=== PATIENT | male | born 1940 | race Caucasian/White ===

== ENCOUNTER 2023-01-11 20:00 | Inpatient (IN) ==
[~2023-01-11 20:00] MED LIST: ETOMIDATE 2 MG/ML 20 ML VIAL IV ONE; MIDAZOLAM HCL 5 MG/ML 2ML VIAL IV ONE; SUCCINYLCHOLINE CHLORIDE 20 MG/ML 10 ML VIAL IV ONE
[2023-01-11] MEDS ORDERED: RAPID SEQUENCE INDUCTION BAG ONE ×2 (20:05)
[2023-01-11] MEDS ORDERED: ALBUT/IPRATROP 3MG/0.5MG NEB 3 ML VIAL NEB ONE (20:09)
[2023-01-11] MEDS ORDERED: PROPOFOL IV EMULSION 10 MG/ML 100 ML VIAL IV ONE (20:22)
[2023-01-11] MEDS ORDERED: MIDAZOLAM HCL 5 MG/ML 2ML VIAL IV STA (21:12)
[2023-01-11] MEDS ORDERED: CEFEPIME 2,000 MG/20 ML VIAL IV STA (21:24)
[2023-01-11] MEDS ORDERED: SODIUM CHLORIDE 0.9% 1000ML 2,000 ML IV ONE (21:27)
[2023-01-11 21:40] LABS: iSTAT Hemoglobin 10.5 g/dl (14.0-18.0); iSTAT Ionized Calcium 1.08 mmol/l (1.12-1.32); iSTAT Potassium 4.9 mmol/L (3.3-5.0)
[2023-01-11] MEDS ORDERED: STAT IV Infusion **Titration per Protocol STA (21:47)
[2023-01-11] MEDS ORDERED: MIDAZOLAM HCL 1 MG/ML 2ML VIAL IV PRN (21:47)
[2023-01-11] MEDS ORDERED: fentaNYL BOLUS from BAG IV PRN (21:47)
[2023-01-11] MEDS ORDERED: fentaNYL citrate 2,500 MCG/250 ML BAG IV ONE (21:48)
[2023-01-11] MEDS ORDERED: NOREPINEPHRINE/D5W 4 MG/250 ML IV ONE (21:49)
[2023-01-11 21:52] LABS: iSTAT Arterial Blood Gas HCO3 24 meg/L (19-24); iSTAT Arterial Blood Gas pCO2 82 mmHg (35-46); iSTAT Arterial Blood Gas pH 7.08 (7.35-7.45); iSTAT Arterial Blood Gas pO2 90 mmHg (80-95); iSTAT Carbon Dioxide 27 mmol/L (24-31); iSTAT Hematocrit 23 % (42-52); iSTAT Hemoglobin 7.8 g/dl (14.0-18.0); iSTAT Potassium 3.7 mmol/L (3.3-5.0); iSTAT Sodium 144 mmol/L (135-144)
[2023-01-11 21:52] LABS: iSTAT Arterial Blood Gas HCO3 32 meg/L (19-24); iSTAT Arterial Blood Gas pCO2 91 mmHg (35-46); iSTAT Arterial Blood Gas pH 7.16 (7.35-7.45); iSTAT Arterial Blood Gas pO2 66 mmHg (80-95); iSTAT Carbon Dioxide 35 mmol/L (24-31); iSTAT Hematocrit 35 % (42-52); iSTAT Hemoglobin 11.9 g/dl (14.0-18.0); iSTAT Potassium 4.7 mmol/L (3.3-5.0); iSTAT Sodium 138 mmol/L (135-144)
[2023-01-11] MEDS: fentaNYL citrate 2,500 MCG/250 ML BAG IV SCH (21:55)
--- NOTE | 2023-01-11 21:57 | Procedure Note ---
Procedure Note Date of Service January 11, 2023 Note INTERNAL JUGULAR CENTRAL LINE PROCEDURE NOTE: Procedure: Internal Jugular Central Line Placement Attending: Dr. Brandon Light Provider: GEENA De La Rosa Indication: Central Drug Administration, Poor Venous Access, Multiple Lab Draws Necessary, etc. Anesthesia: None Consent was signed and placed on the chart prior to procedure. Indication, risks, and benefits were explained at length. A time-out was completed verifying correct patient, procedure, site, positioning, and implants(s) or special equipment if applicable. Patients right neck was cleansed and draped in the typical sterile fashion using Chloraprep. The Internal Jugular Vein and Carotid Artery were identified using ultrasound. The superficial tissue was anesthetized using 3 mL of 1% lidocaine without epinephrine under direct visualization with the ultrasound. After adequate anesthetization was achieved, the Internal Jugular vein was cannulated under direct ultrasound guidance using an introducer needle on a syringe. Good venous blood return was maintained prior to removal of syringe from introducer needle. Using Seldinger Technique, a guide wire was advanced through the introducer needle without resistance. The introducer needle was removed and ultrasound images were obtained of the guide wire within the Internal Jugular Vein and saved to the patients medical record. A small incision was made in penetrating fashion at the guide wire insertion site utilizing an 11 blade scalpel. The dilator was advanced to the vessel without resistance. The dilator was exchanged for the triple lumen catheter which was advanced into the vessel without resistance. The guide wire was removed intact from the catheter without issue. Claves were placed on each catheter tip with confirmation of good blood flow from each lumen. Each port was easily flushed with sterile saline. The catheter was placed at 16 cm and sutured in place. BioPatch was applied to the catheter and a sterile Tegaderm dressing was applied over the catheter with careful attention to sterility. Patient tolerated procedure well. No immediate complications were met. Post procedure x-ray was completed, placement was appropriate and no pneumothorax was noted. Procedural Ultrasound Guidance: Procedure Date: 01/11/2023 Indication: Central venous catheter insertion Attending: Dr. Brandon Light Provider: GEENA De La Rosa Artery AND Vein visualized: Yes Compressible Vein: Yes Guidewire or Short Catheter seen in vein prior to dilation: Yes Line confirmed in Vein with ultrasound: Yes Coding CPT Codes Tubes, Drains, and Vasc Access - Tubes, Drains, and Vasc Access: [id number] Insertion Of Non-tunneled Catheter Age 5 Yrs> ([id number]) Tubes, Drains, and Vasc Access - Tubes, Drains, and Vasc Access: [id number] Ultrasound Guidance For Vascular ([id number]) [facility] Procedure Codes (Charges) Tubes, Drains, and Vasc Access Procedure 1: Tubes, Drains, and Vasc Access: [id number] Insertion Of Non-tunneled Catheter Age 7 Yrs> Procedure 2: Tubes, Drains, and Vasc Access: [id number] Ultrasound Guidance For Vascular
--- NOTE | 2023-01-11 21:57 | Critical Care Consultation ---
Date of Consultation January 11, 2023 Assessment & Plan (1) Acute and chronic respiratory failure: Reason Critically Ill: 82-year-old male with past medical history significant for COPD (2 L nasal cannula at baseline) and recent hospitalization for respiratory failure secondary to pneumonia requiring intubation. Admitted to ICU following acute on chronic hypercapnic and hypoxic respiratory failure with failure of BiPAP requiring intubation. CT imaging with consolidations consistent with pneumonia and now with septic shock requiring vasopressor support. Neuro - Sedation: Fentanyl drip, Versed push as needed Cardiac - Shocksuspect this is most likely septic given pneumonia and respiratory failure. CTA negative for PE -No previous TTE to compare -Troponin mildly elevated at 44, will trend for now -Received 3 L crystalloid bolus in ED, continue with fluid resuscitation -Now requiring Levophed drip, titrate to maintain MAP greater than 65 -Random cortisol pending, administered 100 milligrams hydrocortisone stress dose -A-line inserted for continuous hemodynamic monitoring. Continuous monitoring on telemetry Respiratory - Acute on chronic hypercapnic hypoxic respiratory failurepatient with COPD and on 2 L nasal cannula at baseline -Mechanically ventilatedrepeat ABG showing some improvement in hypercapnia although pH worse with metabolic acidosis. -Was reported to be aspiration risk at rehab center and recommended PEG tube placement, although patient apparently refused. Suspect may have aspiration pneumonia given CT images with bilateral consolidations -CTA negative for PE -Continue with IV Solu-Medrol, scheduled DuoNeb -Continuous end-tidal CO2 and pulse ox monitor -Trend ABGs and adjust ventilator as indicated GI - N.p.o., OG tube to low intermittent suction RENAL/LYTES - Creatinine within normal limits, monitor routine BMPs and replete electrolytes as indicated Metabolic acidosis lactic acidosis in the setting of hypoperfusion with hypoxia and hypotension along with sepsis. Given 3 A bicarb and started on bicarb drip. Will trend lactic acid and pH. Hopefully will improve with ventilator support, fluid resuscitation, and vasopressor support - Foleystrict I's and O's ENDO - No history of diabetes or thyroid disease. ICU hyperglycemic protocol HEME - Anemiano prior baseline of hemoglobin to compare. We will continue to monitor with routine CBCs but no indication for transfusion at this time ID - Sepsismost likely pulmonary source given bilateral consolidations seen on CT chest -Bio fire negative, nasal MRSA negative -Blood cultures and sputum culture pending -Urinalysis been -Continue with cefepime, azithromycin for now LINES/IV ACCESS - CVL, A-line DVT PROPHYLAXIS - SCDs I have personally spent 80 minutes of critical care time in the direct management of this patient. This is a life/limb threatening event. This includes time spent evaluating patient, direct bedside care, chart review, placing orders, interpretation of diagnostic studies, discussion with consultants, patient, and family members, as well as other required patient management activities. This time is exclusive of all separately billable procedures, and teaching time and separate from and in addition to any other critical care service time. Thank you for allowing us to participate in the care of this patient. Please refer to my attending physician's documentation for any further recommendations. (2) COPD (chronic obstructive pulmonary disease): (3) Septic shock: (4) Hypoxia: (5) Tachycardia: (6) Pneumonia: History of Present Illness History of Present Illness Patient is a 82-year-old male with past medical history of COPD (on 2 L nasal cannula at baseline), who was recently admitted at [facility] from 12/03 to 12/11 with acute respiratory failure, pneumonia, sepsis, and COPD exacerbation for which she was intubated for 3 days. Respiratory cultures grew Aspergillus on that admission. Patient was discharged to rehab on 12/11. In the emergency department patient presented from home via EMS with severe hypoxia and respiratory distress. He was emergently intubated shortly after arrival in the ED. Follow-up ABG revealed severe hypoxia and hypercapnia, and patient became hypotensive and bradycardic. I was placed and central line was inserted following. CTA chest negative for PE but did show bilateral interstitial infiltrates in the lung bases consistent with infectious/inflammatory process. CT abdomen pelvis was unremarkable. Patient now be transferred to ICU for further management at this time. Allergies Allergy/AdvReac Type Severity Reaction Status Date / Time No Known Drug Allergies Allergy Unknown Verified 01/12/23 02:10 Home Medications Medication Instructions Recorded Confirmed Type albuterol sulfate 90 mcg/actuation 2 inh inhalation TID PRN Shortness 01/12/23 01/12/23 History aerosol inhaler Of Breath brimonidine 0.1 % eye drops 1 drp ophthalmic (eye) BID 01/12/23 01/12/23 History (Alphagan P) brinzolamide 1 % eye 1 drp ophthalmic (eye) BID 01/12/23 01/12/23 History drops,suspension fluticasone furoate 100 1 inhalation DAILY 01/12/23 History mcg-vilanterol 25 mcg/dose inhalation powder (Breo Ellipta) Patient History Medical History (Updated 01/12/23 @ 03:27 by GEENA Kendrick) COPD (chronic obstructive pulmonary disease) Glaucoma Surgical History (Updated 01/12/23 @ 02:14 by Melissa Weiss DO) No significant past surgical history Family History (Updated 01/12/23 @ 02:14 by Melissa Weiss DO) Other No significant family history Social History (Updated 01/12/23 @ 02:14 by Melissa Weiss DO) Smoking Status: Former smoker Tobacco Type: Smokeless Tobacco (Dip or Chew) Second Hand Exposure: No; Do You Dip or Chew Tobacco: Yes; Tobacco Cessation Education Requested by Patient: No Hx Alcohol Use: No Hx Substance Use: No Preferred Language: French Communication Ability: Unable Supervisor Patching Required: No Beliefs That Will Affect Care: None Current Living Situation: Family Other Information That Helps Us Care for You: No Feels Safe at Home: Yes Safety Concerns: Feels Safe At This Time Assistive Devices: Denture - Upper, Oxygen - at Night and Walker Review of Systems Review of Systems: All systems reviewed & are unremarkable except as noted in HPI & below Physical Exam Constitutional: + thin and + mechanically ventilated Eyes: PERRL, conjunctivae normal, anicteric sclerae ENMT: external ear and nose normal, oropharynx normal Neck: trachea midline, no thyromegaly Respiratory: Lung sounds diminished bilaterally in all lemus with no crackles or wheezes auscultated, symmetrical chest wall movement. Mechanically ventilated Cardiovascular: RRR, no murmur, no edema Rate/Rhythm: + tachycardic Heart Sounds: no murmur Vessels: no JVD Extremities: normal capillary refill; no edema Gastrointestinal (Abdomen): normal bowel sounds, soft, nontender, no hepatosplenomegaly Musculoskeletal: Unable to assess due to sedation Skin: no rashes, warm and dry Neurologic: Unable to assess due to sedation Psychiatric: Unable to assess due to sedation Genitourinary: Indwelling Lou catheter present, urine yellow concentrated Results & Data Results & Data Vital Signs (Past 12 Hours) Vital Signs Pulse Resp BP Pulse Ox FiO2 01/11/23 21:12 114 H 26 H 69/45 L 80 L 100 01/11/23 20:56 128 H 26 H 87/72 L 85 L 100 01/11/23 20:50 141 H 26 H 86/65 L 01/11/23 20:50 86/65 L 01/11/23 20:40 132 H 18 99/77 L 85 L 01/11/23 20:35 131 H 25 H 137/109 H 56 L 01/11/23 20:30 116 H 144/107 H 01/11/23 20:27 67 43/33 L 01/11/23 20:25 83 01/11/23 20:20 131 H 121/85 80 L 01/11/23 20:15 129/89 01/11/23 20:15 127 H 72 L 01/11/23 20:10 132 H 19 131/90 74 L 01/11/23 20:10 131/90 01/11/23 20:07 130 H 22 73 L 01/11/23 20:13 126 H 32 H 129/89 74 L 01/11/23 20:11 131 H Diagnostic Findings Exam(s): CTA CHEST IV Amt: 118 ml optiray 350 EXAM: CT Angiography Chest With Intravenous Contrast CLINICAL HISTORY: Reason for exam: PE. TECHNIQUE: Axial computed tomographic angiography images of the chest with intravenous contrast. CTDI is 9.58 mGy and DLP is 355.04 mGy-cm. Automated exposure control was utilized for the study. A dose lowering technique was utilized adhering to the principles of ALARA. MIP reconstructed images were created and reviewed. COMPARISON: No relevant prior studies available. FINDINGS: Pulmonary arteries: Unremarkable. No pulmonary embolism. Aorta: No acute findings. No thoracic aortic aneurysm. Lungs: Bilateral basilar infiltrates. Diffuse changes COPD. No mass. Pleural space: Unremarkable. No significant effusion. No pneumothorax. Heart: Unremarkable. No cardiomegaly. No significant pericardial effusion. No evidence of RV dysfunction. Bones/joints: No acute fracture. No dislocation. Soft tissues: Unremarkable. Lymph nodes: Unremarkable. No enlarged lymph nodes. Tubes, lines and devices: Endotracheal tube with its tip just above the debbie. Esophageal catheter is present with its tip in the gastric fundus. More confluent opacities within the right upper lobe right-sided central venous catheter with its tip at the cavoatrial junction. IMPRESSION: Bilateral interstitial infiltrates in the lung bases consistent with infectious or inflammatory process. Electronically signed by: Esvin Duran MD 01/11/23 23:41 PM Exam(s): CT ABDOMEN + PELVIS Without Contrast EXAM: CT Abdomen and Pelvis Without Intravenous Contrast CLINICAL HISTORY: Reason for exam: shock, elevated LA. TECHNIQUE: Axial computed tomography images of the abdomen and pelvis without intravenous contrast. CTDI is 9.58 mGy and DLP is 355.04 mGy-cm. Automated exposure control was utilized for the study. A dose lowering technique was utilized adhering to the principles of ALARA. COMPARISON: No relevant prior studies available. FINDINGS: Lung bases: Bibasilar dependent atelectasis with superimposed bilateral basilar infiltrates diffuse changes COPD. ABDOMEN: Liver: Unremarkable. Gallbladder and bile ducts: Unremarkable. No calcified stones. No ductal dilation. Pancreas: Unremarkable. No ductal dilation. Spleen: Unremarkable. No splenomegaly. Adrenals: Unremarkable. No mass. Kidneys and ureters: Unremarkable. No obstructing stones. No hydronephrosis. Stomach and bowel: esophageal catheter with its tip in the gastric fundus. Large amount of stool within the colon. . PELVIS: Appendix: No findings to suggest acute appendicitis. Bladder: Mildly distended urinary bladder. No stones. Reproductive: Unremarkable as visualized. ABDOMEN and PELVIS: Intraperitoneal space: Unremarkable. No free air. No significant fluid collection. Bones/joints: No acute fracture. No dislocation. Soft tissues: Unremarkable. Vasculature: Unremarkable. No abdominal aortic aneurysm. Lymph nodes: Unremarkable. No enlarged lymph nodes. IMPRESSION: Bibasilar infiltrates consistent with pneumonia. Coding Level of Care Code 22971 CRITICAL CARE 1ST 30-74M Diagnoses Acute and chronic respiratory failure J96.20 COPD (chronic obstructive pulmonary disease) J44.9 Septic shock A41.9; R65.21 Hypoxia R09.02 Tachycardia R00.0 Pneumonia J18.9
[2023-01-11] MEDS: NOREPINEPHRINE/D5W 4 MG/250 ML PLCT IV SCH (21:59)
[2023-01-11 22:00] LABS: Basophils # (auto) 0.01 K/uL (0-0.2); Basophils % (auto) 0.1 %; Hematocrit (blood only) 31.5 % (42.0-52.0); Hemoglobin 9.7 g/dl (14.0-18.0); Immature Granulocytes # (auto) 0.06 K/uL (0.01-0.20); Immature Granulocytes % (auto) 0.6 %; Lymphocytes # (auto) 1.72 K/uL (1.2-3.4); Mean Corpuscular Hemoglobin 30.2 pg (25.0-34.0); Mean Corpuscular Hgb Conc 30.8 g/dL (32.0-36.0); Mean Corpuscular Volume 98.1 fL (80.0-100.0); Mean Platelet Volume 10.9 fL (9.4-12.4); Monocytes # (auto) 0.71 K/uL (0.11-0.59); Neutrophils # (auto) 7.62 K/uL (1.40-6.50); Neutrophils % (auto) 75.3 %; Platelet Count 397 K/uL (130-400); RDW Standard Deviation 50.5 fL (36.4-46.3); Red Blood Count 3.21 M/uL (4.70-6.10); White Blood Count 10.12 K/ul (4.8-10.8)
[2023-01-11 22:12] LABS: Alanine Aminotransferase 13 U/L (7-52); Albumin Level 2.8 gm/dl (3.4-5.0); Alkaline Phosphatase 102 U/L (34-104); Anion Gap 9 (3-11); Aspartate Aminotransferase 16 U/L (13-39); BUN Creatinine Ratio 35.2 (10-20); Bilirubin,Total 0.7 mg/dl (0.2-1.0); Blood Urea Nitrogen 37 mg/dl (6-23); Calcium 8.1 mg/dl (8.6-10.3); Carbon Dioxide 25 mmol/L (21-32); Chloride 107 mmol/L (98-107); Est GFR (African American) 77.3 ml/min; Est GFR (Non-African American) 66.7 ml/min; Globulin 2.7 gm/dl (2.5-4.0); Glucose 206 mg/dl (70-99(Fasting)); Magnesium 2.2 mg/dl (1.7-2.4); Phosphorus 5.5 mg/dl (2.5-4.9); Sodium 141 mmol/L (136-145); Total Protein 5.5 gm/dl (6.0-8.3)
[2023-01-11] MEDS ORDERED: IOVERSOL 350 MG 125mL Prefilled Syringe IV ONE (22:21)
[2023-01-11 22:22] LABS: INR 1.2 (0.9-1.1); Partial Thromboplastin Ratio 0.9; Partial Thromboplastin Time 26.4 Seconds (21.0-31.0); Prothrombin Time 12.5 Seconds (9.0-12.0)
[2023-01-11 22:28] LABS: Adenovirus PCR Not Detected (NotDetected); Bordetella parapertussis PCR Not Detected (NotDetected); Bordetella pertussis PCR Not Detected (NotDetected); Chlamydia pneumoniae PCR Not Detected (NotDetected); Coronavirus 229E PCR Not Detected (NotDetected); Coronavirus CoV-2 (COVID19)PCR Not Detected (NotDetected); Coronavirus HKU1 PCR Not Detected (NotDetected); Coronavirus NL63 PCR Not Detected (NotDetected); Coronavirus OC43PCR Not Detected (NotDetected); Human Metapneumovirus PCR Not Detected (NotDetected); Influenza A PCR Not Detected (NotDetected); Influenza B PCR Not Detected (NotDetected); Mycoplasma pneumoniae PCR Not Detected (NotDetected); Parainfluenza Virus 1 PCR Not Detected (NotDetected); Parainfluenza Virus 2 PCR Not Detected (NotDetected); Parainfluenza Virus 3 PCR Not Detected (NotDetected); Parainfluenza Virus 4 PCR Not Detected (NotDetected); Respiratory Syncytial VirusPCR Not Detected (NotDetected); Rhinovirus/Enterovirus PCR Not Detected (NotDetected)
--- NOTE | 2023-01-11 22:34 | History & Physical Report ---
Date of Service January 11, 2023 Assessment & Plan (1) Respiratory failure: Plan: 82yo male with history of oxygen dependent COPD, recent hospitalization at [facility] for acute hypoxic respiratory failure secondary to PNA and COPD requiring intubation and MICU care. Patient presents this evening with acute hypoxic respiratory failure, failed BiPAP in the ER therefore intubated for acute hypoxic respiratory failure and admitted to the MICU. Presently with adequate oxygenation of 80% FiO2. CT of the chest with bibasilar infiltrates. Suspect aspiration event. No overt wheezing appreciated on exam at this time Neuro: Intubated and sedated. No focal deficits noted on exam Cardiovascular: Patient hypotensive after intubation requiring Levophed -Admit to MICU -Continue Levophed, goal MAP of 65 -Continue IVF - per history, patient has had very poor oral intake of late. Per MICU and ER providers - IJ and Femoral veins were highly compressible suggesting intravascular depletion/dehydration Pulmonary- possible aspiration event leading to patient's acute hypoxic event -Continue mechanical ventilation -DuoNebs -Albuterol -Solumedrol 60mg IV TID -Antibiotic coverage - Cefepime and Azithromycin GI - No acute issues -Protonix 40mg IV daily for GI prophylaxis while ventilated - No acute issues. -Lou in place -Monitor BUN and Cr Heme - Normochromic/normocytic anemia with Hgb=8.5, Hct=27.6. No obvious bleeding -Monitor ID - possible aspiration PNA -Follow cultures -Cefepime + Azithromycin Endocrine - no active issues. Given Hydrocortisone 100mg IV x 1 dose (2) Hypotension: (3) COPD (chronic obstructive pulmonary disease): Admission and Anticipated Discharge Date Admission Date: January 11, 2023 History of Present Illness Chief Complaint: acute hypoxic respiratory failure Primary Care Provider: Marty Elaine DO 82yo male presenting to [facility] ER with acute hypoxic respiratory failure. Patient intubated in the ER and started on vasopressors. History obtained through chart review, discussion with ER staff and discussion with family. 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 He was admitted to [facility] 12/03/22 - 12/11/22 after presenting with acute respiratory failure with saturations in the 70's requiring intubation and MICU admission. He was diagnosed with PNA, COPD exacerbation and sepsis. He was found to have a consolidation in right apex and small bilateral pleural effusions. He had a right common iliac occlusion/thrombus and was seen by Vascular Surgery - no intervention planned. He had a respiratory culture which revealed rare aspergillus. He was treated with Cefepime, Vancomycin and Solumedrol. He was ultimately extubated to his baseline NC and discharged to rehab at [facility] in [place] on 12/11/22. He reportedly did well at [facility] and was discharged home on 12/21/22. Daughter reports that since returning from [facility] patient has been eating and drinking very little. He coughs frequently with eating and is known to be high risk for aspiration. He is to eat a minced/moist diet and thickened liquids. This evening he was in his usual state of health with no new complaints. He laid down in the afternoon and took a 2 hour nap. His daughter checked on him and noted that he seemed to be having a hard time breathing. She checked his oxygen level while he was sleeping and it was found to be low at 63% while on his 2L NC. Daughter woke him up and increased his supplemental O2 to 2.5 L with some improvement in saturation to mid 70's. She continued to increase his oxygen until she got over 3L with saturation of approximately 83% - then called EMS. Upon arrival to the ER patient in acute hypoxic respiratory failure. He was placed on CPAP --> BiPAP with no improvement in saturation. He was ultimately intubated for acute hypoxic respiratory failure. Of note, he was administered IV Etomidate and Succinylcholine x 1 with no response - IV noted to be blown. The medications were then administered through a different IV site. After intubation patient became hypotensive and bradycardic. He was administered 1mg of epinephrine with improvement. Unsuccessful attempt to pass a right femoral TLC due to inability to pass the wire and highly collapsible vasculature. A left IO was obtained and a left foot PIV placed. MICU LINDA-Janice Cooper placed a right IJ TLC. Additional epinephrine 2mL was administered due to decreasing blood pressure. Patient also administered 50mEq HCO3 x 2, Cefepime and 2L NSS Patient was admitted to MICU Allergies Allergy/AdvReac Type Severity Reaction Status Date / Time No Known Drug Allergies Allergy Unknown Verified 01/12/23 02:10 Home Medications Medication Instructions Recorded Confirmed Type albuterol sulfate 90 mcg/actuation 2 inh inhalation TID PRN Shortness 01/12/23 01/12/23 History aerosol inhaler Of Breath brimonidine 0.1 % eye drops 1 drp ophthalmic (eye) BID 01/12/23 01/12/23 History (Alphagan P) brinzolamide 1 % eye 1 drp ophthalmic (eye) BID 01/12/23 01/12/23 History drops,suspension fluticasone furoate 100 1 inhalation DAILY 01/12/23 History mcg-vilanterol 25 mcg/dose inhalation powder (Breo Ellipta) Past Med/Surg History Medical History (Updated 01/11/23 @ 23:29 by Wolf Lerma MD) COPD (chronic obstructive pulmonary disease) Glaucoma Surgical History (Updated 01/12/23 @ 02:14 by Melissa Weiss DO) No significant past surgical history Family History (Updated 01/12/23 @ 02:14 by Melissa Weiss DO) Other No significant family history Social History (Updated 01/12/23 @ 02:14 by Melissa Weiss DO) Smoking Status: Former smoker Hx Alcohol Use: No Hx Substance Use: No Preferred Language: Iraqi Review of Systems Review of Systems: Unobtainable due to endotracheal tube Physical Exam Physical Exam: General: frail, cachectic male, intubated and sedated Skin: warm, dry, intact, no rashes or lesions HEENT: NC/AT, PERRL, anicteric sclera, conjunctiva without injection, external ear normal to inspection and nontender, nares patent, moist mucus membranes, dentition intact, no oropharyngeal lesions, neck supple, trachea midline, no LAD, no thyromegaly, no JVD Heart: +S1/S2, regular, tachycardic, no m/r/g Lungs: equal air entry bilaterally, no rales/rhonchi/wheezes Abd: +BS, soft, ND, no masses/organomegaly/ascites Ext: warm, 2+ pulses in UE/LE bilaterally, no clubbing/cyanosis or edema Neuro: intubated sedated Results & Data Results & Data Vital Signs (Past 12 Hours) Vital Signs Pulse Resp BP Pulse Ox FiO2 01/11/23 21:12 114 H 26 H 69/45 L 80 L 100 01/11/23 20:56 128 H 26 H 87/72 L 85 L 100 01/11/23 20:50 141 H 26 H 86/65 L 01/11/23 20:50 86/65 L 01/11/23 20:40 132 H 18 99/77 L 85 L 01/11/23 20:35 131 H 25 H 137/109 H 56 L 01/11/23 20:30 116 H 144/107 H 01/11/23 20:27 67 43/33 L 01/11/23 20:25 83 01/11/23 20:20 131 H 121/85 80 L 01/11/23 20:15 129/89 01/11/23 20:15 127 H 72 L 01/11/23 20:10 132 H 19 131/90 74 L 01/11/23 20:10 131/90 01/11/23 20:07 130 H 22 73 L 01/11/23 20:13 126 H 32 H 129/89 74 L 01/11/23 20:11 131 H Laboratory Results Laboratory Results WBC 10.12 K/ul (4.8-10.8) 01/11/23 Unknown RBC 3.21 M/uL (4.70-6.10) L 01/11/23 Unknown Hgb 9.7 g/dl (14.0-18.0) L 01/11/23 Unknown POC Hgb 7.8 g/dl (14.0-18.0) L 01/11/23 21:35 Hct 31.5 % (42.0-52.0) L 01/11/23 Unknown POC Hct 23 % (42-52) L 01/11/23 21:35 MCV 98.1 fL (80.0-100.0) 01/11/23 Unknown MCH 30.2 pg (25.0-34.0) 01/11/23 Unknown MCHC 30.8 g/dL (32.0-36.0) L 01/11/23 Unknown RDW Std Deviation 50.5 fL (36.4-46.3) H 01/11/23 Unknown RDW Coeff of Talia 14.0 % (11.5-14.5) 01/11/23 Unknown Plt Count 397 K/uL (130-400) 01/11/23 Unknown MPV 10.9 fL (9.4-12.4) 01/11/23 Unknown Immature Gran % (Auto) 0.6 % 01/11/23 Unknown Neut % (Auto) 75.3 % 01/11/23 Unknown Lymph % (Auto) 17.0 % 01/11/23 Unknown [place] % (Auto) 7.0 % 01/11/23 Unknown Eos % (Auto) 0.0 % 01/11/23 Unknown Baso % (Auto) 0.1 % 01/11/23 Unknown Neut # (Auto) 7.62 K/uL (1.40-6.50) H 01/11/23 Unknown Lymph # (Auto) 1.72 K/uL (1.2-3.4) 01/11/23 Unknown [place] # (Auto) 0.71 K/uL (0.11-0.59) H 01/11/23 Unknown Eos # (Auto) 0.00 K/uL (0-0.50) 01/11/23 Unknown Baso # (Auto) 0.01 K/uL (0-0.2) 01/11/23 Unknown Immature Gran # (Auto) 0.06 K/uL (0.01-0.20) 01/11/23 Unknown PT 12.5 Seconds (9.0-12.0) H 01/11/23 Unknown INR 1.2 (0.9-1.1) H 01/11/23 Unknown APTT 26.4 Seconds (21.0-31.0) 01/11/23 Unknown PTT Ratio 0.9 01/11/23 Unknown POC pH 7.08 (7.35-7.45) L* 01/11/23 21:35 POC pCO2 82 mmHg (35-46) H 01/11/23 21:35 POC pO2 90 mmHg (80-95) 01/11/23 21:35 POC HCO3 24 hemant/L (19-24) 01/11/23 21:35 POC Total CO2 27 mmol/L (24-31) 01/11/23 21:35 POC Base Excess -6.0 hemant/L (-9-1.8) 01/11/23 21:35 POC ABG O2 Sat 92.0 % (90-95) 01/11/23 21:35 POC Sodium 144 mmol/L (135-144) 01/11/23 21:35 Sodium 141 mmol/L (136-145) 01/11/23 Unknown POC Potassium 3.7 mmol/L (3.3-5.0) 01/11/23 21:35 Potassium 5.0 mmol/L (3.5-5.1) 01/11/23 Unknown POC Chloride 106 mmol/L (101-112) 01/11/23 21:27 Chloride 107 mmol/L (98-107) 01/11/23 Unknown Carbon Dioxide 25 mmol/L (21-32) 01/11/23 Unknown POC Total CO2 24 mmol/L (24-31) 01/11/23 21:27 Anion Gap 9 (3-11) 01/11/23 Unknown POC Anion Gap 18.0 mmol/L (16-25) 01/11/23 21:27 POC BUN 31 mg/dl (7-18) H 01/11/23 21:27 BUN 37 mg/dl (6-23) H 01/11/23 Unknown Creatinine 1.05 mg/dl (0.6-1.4) 01/11/23 Unknown POC Creatinine 1.0 mg/dl (0.6-1.3) 01/11/23 21:27 Est Cr Clr Drug Dosing Not Reportable 01/11/23 Unknown Est GFR ( Amer) 77.3 ml/min 01/11/23 Unknown Est GFR (Non-Af Amer) 66.7 ml/min 01/11/23 Unknown BUN/Creatinine Ratio 35.2 (10-20) H 01/11/23 Unknown Glucose 206 mg/dl (70-99(Fasting)) H 01/11/23 Unknown POC Glucose (other) 206 mg/dl (70-99) H 01/11/23 21:27 Lactate 5.3 mmol/L (0.4-2.0) H* 01/11/23 Unknown Calcium 8.1 mg/dl (8.6-10.3) L 01/11/23 Unknown POC Ioniz Calcium Tracey 1.08 mmol/l (1.12-1.32) L 01/11/23 21:27 Phosphorus 5.5 mg/dl (2.5-4.9) H 01/11/23 Unknown Magnesium 2.2 mg/dl (1.7-2.4) 01/11/23 Unknown Total Bilirubin 0.7 mg/dl (0.2-1.0) 01/11/23 Unknown AST 16 U/L (13-39) 01/11/23 Unknown ALT 13 U/L (7-52) 01/11/23 Unknown Alkaline Phosphatase 102 U/L (34-104) 01/11/23 Unknown Total Protein 5.5 gm/dl (6.0-8.3) L 01/11/23 Unknown Albumin 2.8 gm/dl (3.4-5.0) L 01/11/23 Unknown Globulin 2.7 gm/dl (2.5-4.0) 01/11/23 Unknown Albumin/Globulin Ratio 1.0 (0.9-2) 01/11/23 Unknown Procalcitonin 0.55 ng/ml (0-0.5) H 01/11/23 Unknown Adenovirus (PCR) Not Detected (NotDetected) 01/11/23 21:30 B. pertussis DNA (PCR) Not Detected (NotDetected) 01/11/23 21:30 B.parapertussis DNA PCR Not Detected (NotDetected) 01/11/23 21:30 C. pneumoniae DNA (PCR) Not Detected (NotDetected) 01/11/23 21:30 Coronavirus OC43 (PCR) Not Detected (NotDetected) 01/11/23 21:30 Coronavirus HKU1 (PCR) Not Detected (NotDetected) 01/11/23 21:30 Coronavirus 229E (PCR) Not Detected (NotDetected) 01/11/23 21:30 SARS-CoV-2 (PCR) Not Detected (NotDetected) 01/11/23 21:30 Coronavirus NL63 (PCR) Not Detected (NotDetected) 01/11/23 21:30 Human Metapneumovir PCR Not Detected (NotDetected) 01/11/23 21:30 Influenza Type A (PCR) Not Detected (NotDetected) 01/11/23 21:30 Influenza Type B (PCR) Not Detected (NotDetected) 01/11/23 21:30 M. pneumoniae (PCR) Not Detected (NotDetected) 01/11/23 21:30 Parainfluenza 1 (PCR) Not Detected (NotDetected) 01/11/23 21:30 Parainfluenza 2 (PCR) Not Detected (NotDetected) 01/11/23 21:30 Parainfluenza 3 (PCR) Not Detected (NotDetected) 01/11/23 21:30 Parainfluenza 4 (PCR) Not Detected (NotDetected) 01/11/23 21:30 RSV (PCR) Not Detected (NotDetected) 01/11/23 21:30 Entero/Rhino (PCR) Not Detected (NotDetected) 01/11/23 21:30 Diagnostic Findings Laboratory Results WBC 13.76 K/ul (4.8-10.8) H 01/12/23 01:41 RBC 2.84 M/uL (4.70-6.10) L 01/12/23 01:41 Hgb 8.5 g/dl (14.0-18.0) L 01/12/23 01:41 POC Hgb 9.9 g/dl (14.0-18.0) L 01/12/23 01:42 Hct 27.6 % (42.0-52.0) L 01/12/23 01:41 POC Hct 29 % (42-52) L 01/12/23 01:42 MCV 97.2 fL (80.0-100.0) 01/12/23 01:41 MCH 29.9 pg (25.0-34.0) 01/12/23 01:41 MCHC 30.8 g/dL (32.0-36.0) L 01/12/23 01:41 RDW Std Deviation 50.5 fL (36.4-46.3) H 01/12/23 01:41 RDW Coeff of Talia 14.2 % (11.5-14.5) 01/12/23 01:41 Plt Count 282 K/uL (130-400) 01/12/23 01:41 MPV 10.3 fL (9.4-12.4) 01/12/23 01:41 Immature Gran % (Auto) 0.6 % 01/11/23 Unknown Neut % (Auto) 75.3 % 01/11/23 Unknown Lymph % (Auto) 17.0 % 01/11/23 Unknown [place] % (Auto) 7.0 % 01/11/23 Unknown Eos % (Auto) 0.0 % 01/11/23 Unknown Baso % (Auto) 0.1 % 01/11/23 Unknown Neut # (Auto) 7.62 K/uL (1.40-6.50) H 01/11/23 Unknown Lymph # (Auto) 1.72 K/uL (1.2-3.4) 01/11/23 Unknown [place] # (Auto) 0.71 K/uL (0.11-0.59) H 01/11/23 Unknown Eos # (Auto) 0.00 K/uL (0-0.50) 01/11/23 Unknown Baso # (Auto) 0.01 K/uL (0-0.2) 01/11/23 Unknown Immature Gran # (Auto) 0.06 K/uL (0.01-0.20) 01/11/23 Unknown PT 12.5 Seconds (9.0-12.0) H 01/11/23 Unknown INR 1.2 (0.9-1.1) H 01/11/23 Unknown APTT 26.4 Seconds (21.0-31.0) 01/11/23 Unknown PTT Ratio 0.9 01/11/23 Unknown Sample Site Art Line 01/12/23 01:42 POC pH 7.29 (7.35-7.45) L 01/12/23 01:42 POC pCO2 48 mmHg (35-46) H 01/12/23 01:42 POC pO2 215 mmHg (80-95) H 01/12/23 01:42 POC HCO3 23 hemant/L (19-24) 01/12/23 01:42 POC Total CO2 25 mmol/L (24-31) 01/12/23 01:42 POC Base Excess -3.0 hemant/L (-9-1.8) 01/12/23 01:42 ABG pH (Temp Correct) 7.304 (7.35-7.45) L 01/12/23 01:42 ABG pCO2 (Temp Corrct 46 mmHg (35-46) 01/12/23 01:42 POC ABG pO2 at Pt Temp 210 01/12/23 01:42 POC ABG O2 Sat 100.0 % (90-95) H 01/12/23 01:42 Genaro Test NA 01/12/23 01:42 O2 Delivery Device Ventilator 01/12/23 01:42 POC O2 Rate 30 01/12/23 01:42 POC FiO2 85 % 01/12/23 01:42 Tidal Volume 320 01/12/23 01:42 PEEP 10 01/12/23 01:42 POC Sodium 141 mmol/L (135-144) 01/12/23 01:42 Sodium 141 mmol/L (136-145) 01/12/23 01:41 POC Potassium 4.7 mmol/L (3.3-5.0) 01/12/23 01:42 Potassium 4.7 mmol/L (3.5-5.1) 01/12/23 01:41 POC Chloride 106 mmol/L (101-112) 01/11/23 21:27 Chloride 105 mmol/L (98-107) 01/12/23 01:41 Carbon Dioxide 22 mmol/L (21-32) 01/12/23 01:41 POC Total CO2 24 mmol/L (24-31) 01/11/23 21:27 Anion Gap 14 (3-11) H 01/12/23 01:41 POC Anion Gap 18.0 mmol/L (16-25) 01/11/23 21:27 POC BUN 31 mg/dl (7-18) H 01/11/23 21:27 BUN 35 mg/dl (6-23) H 01/12/23 01:41 Creatinine 1.08 mg/dl (0.6-1.4) 01/12/23 01:41 POC Creatinine 1.0 mg/dl (0.6-1.3) 01/11/23 21:27 Est Cr Clr Drug Dosing 30.6 ml/min 01/12/23 01:41 Est GFR ( Amer) 74.7 ml/min 01/12/23 01:41 Est GFR (Non-Af Amer) 64.5 ml/min 01/12/23 01:41 BUN/Creatinine Ratio 32.4 (10-20) H 01/12/23 01:41 Glucose 176 mg/dl (70-99(Fasting)) H 01/12/23 01:41 POC Glucose (other) 206 mg/dl (70-99) H 01/11/23 21:27 Lactate 7.1 mmol/L (0.4-2.0) H* 01/12/23 01:41 Calcium 7.0 mg/dl (8.6-10.3) L 01/12/23 01:41 POC Ioniz Calcium [place]acey 1.08 mmol/l (1.12-1.32) L 01/11/23 21:27 Phosphorus 4.3 mg/dl (2.5-4.9) D 01/12/23 01:41 Magnesium 1.9 mg/dl (1.7-2.4) 01/12/23 01:41 Total Bilirubin 0.7 mg/dl (0.2-1.0) 01/11/23 Unknown AST 16 U/L (13-39) 01/11/23 Unknown ALT 13 U/L (7-52) 01/11/23 Unknown Alkaline Phosphatase 102 U/L (34-104) 01/11/23 Unknown Troponin I High Sens 44.2 pg/ml (0-20) H 01/11/23 Unknown Total Protein 5.5 gm/dl (6.0-8.3) L 01/11/23 Unknown Albumin 2.8 gm/dl (3.4-5.0) L 01/11/23 Unknown Globulin 2.7 gm/dl (2.5-4.0) 01/11/23 Unknown Albumin/Globulin Ratio 1.0 (0.9-2) 01/11/23 Unknown Procalcitonin 0.55 ng/ml (0-0.5) H 01/11/23 Unknown Adenovirus (PCR) Not Detected (NotDetected) 01/11/23 21:30 B. pertussis DNA (PCR) Not Detected (NotDetected) 01/11/23 21:30 B.parapertussis DNA PCR Not Detected (NotDetected) 01/11/23 21:30 C. pneumoniae DNA (PCR) Not Detected (NotDetected) 01/11/23 21:30 Coronavirus OC43 (PCR) Not Detected (NotDetected) 01/11/23 21:30 Coronavirus HKU1 (PCR) Not Detected (NotDetected) 01/11/23 21:30 Coronavirus 229E (PCR) Not Detected (NotDetected) 01/11/23 21:30 SARS-CoV-2 (PCR) Not Detected (NotDetected) 01/11/23 21:30 Coronavirus NL63 (PCR) Not Detected (NotDetected) 01/11/23 21:30 Human Metapneumovir PCR Not Detected (NotDetected) 01/11/23 21:30 Influenza Type A (PCR) Not Detected (NotDetected) 01/11/23 21:30 Influenza Type B (PCR) Not Detected (NotDetected) 01/11/23 21:30 M. pneumoniae (PCR) Not Detected (NotDetected) 01/11/23 21:30 Parainfluenza 1 (PCR) Not Detected (NotDetected) 01/11/23 21:30 Parainfluenza 2 (PCR) Not Detected (NotDetected) 01/11/23 21:30 Parainfluenza 3 (PCR) Not Detected (NotDetected) 01/11/23 21:30 Parainfluenza 4 (PCR) Not Detected (NotDetected) 01/11/23 21:30 RSV (PCR) Not Detected (NotDetected) 01/11/23 21:30 Entero/Rhino (PCR) Not Detected (NotDetected) 01/11/23 21:30 Impressions Abdomen/Pelvis CT 01/11/23 21:54 Exam(s): CT ABDOMEN + PELVIS Without Contrast EXAM: CT Abdomen and Pelvis Without Intravenous Contrast CLINICAL HISTORY: Reason for exam: shock, elevated LA. TECHNIQUE: Axial computed tomography images of the abdomen and pelvis without intravenous contrast. CTDI is 9.58 mGy and DLP is 355.04 mGy-cm. Automated exposure control was utilized for the study. A dose lowering technique was utilized adhering to the principles of ALARA. COMPARISON: No relevant prior studies available. FINDINGS: Lung bases: Bibasilar dependent atelectasis with superimposed bilateral basilar infiltrates diffuse changes COPD. ABDOMEN: Liver: Unremarkable. Gallbladder and bile ducts: Unremarkable. No calcified stones. No ductal dilation. Pancreas: Unremarkable. No ductal dilation. Spleen: Unremarkable. No splenomegaly. Adrenals: Unremarkable. No mass. Kidneys and ureters: Unremarkable. No obstructing stones. No hydronephrosis. Stomach and bowel: esophageal catheter with its tip in the gastric fundus. Large amount of stool within the colon. . PELVIS: Appendix: No findings to suggest acute appendicitis. Bladder: Mildly distended urinary bladder. No stones. Reproductive: Unremarkable as visualized. ABDOMEN and PELVIS: Intraperitoneal space: Unremarkable. No free air. No significant fluid collection. Bones/joints: No acute fracture. No dislocation. Soft tissues: Unremarkable. Vasculature: Unremarkable. No abdominal aortic aneurysm. Lymph nodes: Unremarkable. No enlarged lymph nodes. IMPRESSION: Bibasilar infiltrates consistent with pneumonia. Constipation Electronically signed by: Esvin Duran MD 01/11/23 23:37 PM Chest CTA 01/11/23 21:54 Exam(s): CTA CHEST IV Amt: 118 ml optiray 350 EXAM: CT Angiography Chest With Intravenous Contrast CLINICAL HISTORY: Reason for exam: PE. TECHNIQUE: Axial computed tomographic angiography images of the chest with intravenous contrast. CTDI is 9.58 mGy and DLP is 355.04 mGy-cm. Automated exposure control was utilized for the study. A dose lowering technique was utilized adhering to the principles of ALARA. MIP reconstructed images were created and reviewed. COMPARISON: No relevant prior studies available. FINDINGS: Pulmonary arteries: Unremarkable. No pulmonary embolism. Aorta: No acute findings. No thoracic aortic aneurysm. Lungs: Bilateral basilar infiltrates. Diffuse changes COPD. No mass. Pleural space: Unremarkable. No significant effusion. No pneumothorax. Heart: Unremarkable. No cardiomegaly. No significant pericardial effusion. No evidence of RV dysfunction. Bones/joints: No acute fracture. No dislocation. Soft tissues: Unremarkable. Lymph nodes: Unremarkable. No enlarged lymph nodes. Tubes, lines and devices: Endotracheal tube with its tip just above the debbie. Esophageal catheter is present with its tip in the gastric fundus. More confluent opacities within the right upper lobe right-sided central venous catheter with its tip at the cavoatrial junction. IMPRESSION: Bilateral interstitial infiltrates in the lung bases consistent with infectious or inflammatory process. Electronically signed by: Esvin Duran MD 01/11/23 23:41 PM PG Care Time/CCT Total # of Minutes Spent Total Time Spent with Patient: Total time spent is greater than 50% in coordination of care (as documented) at patient's floor/unit and/or counseling patient: Coding Level of Care Code 88469 INT INP/OBS CARE 3/75MIN Diagnoses Respiratory failure J96.01; J96.02 Chronicity: acute Respiratory failure complication: hypoxia and hypercapnia Hypotension I95.9 Hypotension type: unspecified hypotension type COPD (chronic obstructive pulmonary disease) J44.9 (1) Respiratory failure Chronicity: acute Respiratory failure complication: hypoxia and hypercapnia Qualified Code(s): J96.01 - Acute respiratory failure with hypoxia; J96.02 - Acute respiratory failure with hypercapnia (2) Hypotension Hypotension type: unspecified hypotension type Qualified Code(s): I95.9 - Hypotension, unspecified
--- NOTE | 2023-01-11 22:51 | Emergency Department Note ---
Impression & Plan Respiratory failure, Hypoxia, Tachycardia, Hypotension, Sepsis, Anemia, Acute dehydration ED Provider Note NAME: JOE QUIROGA AGE: 82 SEX: M : 1940 ARRIVES VIA: Ambulance INFORMANT: [Patient][EMS, nursing, family] ED PROVIDER(S): [Wolf Lerma MD] CHIEF COMPLAINT: Respiratory distress HISTORY OF PRESENT ILLNESS: The patient is an 82-year-old male who was in the hospital recently for pneumonia. He was ventilated. He was discharged to rehab. The patient apparently has not been eating or drinking well and there was talk of placing a feeding tube however, the patient refused. As per the family, the patient was in baseline health today on 2 L of oxygen. A few hours prior to arrival, he seemed a bit more short of breath and they turned up his oxygen. He did better for a while but became again more short of breath and eventually, severely short of breath to the point where they called the ambulance. Upon arrival here in the ED, the patient was hypoxic and struggling to breathe. I was called emergently to the room. Of note, the patient was given a DuoNeb and IV Solu-Medrol in route, he was given CPAP as well. When he arrived in the ER, respiratory switched him to BiPAP but this has made no improvement in his respiratory distress. Given the circumstances, no further history obtainable. PMHx/PSHx: See Below SOCIAL HISTORY: See Below. PHYSICAL EXAM: GENERAL: Patient is in marked respiratory distress. Quite thin and frail. HEENT: No acute trauma, normocephalic atraumatic, mucous membranes dry, no nasal congestion. NECK: No stridor, no adenopathy, no meningismus, trachea is midline. LUNGS: Marked respiratory distress, diminished breath sounds bilaterally, min imal air movement. Less air movement on the right when compared to the left. HEART: Tachycardic, regular rhythm, no obvious murmur. ABDOMEN: Soft, nontender, bowel sounds positive, no peritonitis. EXTREMITIES: No cyanosis or edema, full range of motion of all the joints without pain or difficulty, no signs for acute trauma. NEUROLOGIC: Awake, moves all extremities. Answers questions by shaking his head yes or no. SKIN: No rash, no jaundice, no diaphoresis. DIFFERENTIAL DIAGNOSIS: Pneumothorax, pneumonia, CHF, exacerbation of COPD, sepsis, dehydration, renal or liver failure, SD, among others. EMERGENCY DEPARTMENT COURSE/PROCEDURES: Prior/Outside records reviewed: EMS notes Critical Care Note: I have personally spent 68 minutes of critical care time in the direct management of this patient. This includes bedside care, interpretation of diagnostic studies, and testing, discussion with consultants, patient, and family members, and other required patient management activities. This 68 minutes is in excess of all separately billable procedures. Central Line placement: This procedure was performed by me. The area for the procedure, right groin, was cleansed sterilely and prepared for the procedure. Lidocaine was used for anesthesia. Sterile technique was employed. Using the Seldinger technique, I attempted to cannulate the right femoral vein. The vein was struck multiple times but I was unable to pass the wire successfully. There was no arterial stick. The procedure was halted. Continuous Cardiac Monitoring: An order was placed for continuous cardiac monitoring. The monitor shows a rate of 132 with sinus tachycardia. Intubation: This procedure was performed by wi. Patient received 20 mg of etomidate IV, 125 mg of succinylcholine IV. The patient was hyper oxygenated. Using rapid technique, the patient was intubated with a Roger two blade. Some suction was required. No complication. The endotracheal tube was placed at 23 centimeters at the the lips. The patient remained hypoxic in the 80s. Good CO2 color change. Breath sounds were diminished bilaterally but more so on the righ t. Post intubation chest x-ray demonstrated the tube to be in good position. MEDICAL DECISION MAKING: There is no leukocytosis. The patient is anemic with a hemoglobin of 9.7. We have no old values to use for comparison. Platelet count was normal. INR is slightly elevated at 1.2. Normal PTTR. ABG shows a respiratory acidosis. Hypoxia was noted. There was no renal failure. Lactic acid level was high at 5.3, consistent with dehydration, acidosis and or sepsis. Phosphorus was high at 5.5. Procalcitonin level was elevated at 0.55, consistent with potential bacterial infection. Respiratory bio fire was completely negative. Chest x-ray per my review shows chronic lung changes consistent with COPD. There was some patchy congestion of the lungs consistent with potential chronic change versus early bilateral infiltrate. There was a consolidation in the right upper lung which appears chronic. The endotracheal tube was in proper position. On exam, the patient was in respiratory distress. He was failing BiPAP. He was hypoxic and tachycardic. He could not speak really any words he was that short of breath. I discussed intubation with him, he did shake his head yes. Patient was intubated as noted above. He initially received IV etomidate and IV succinylcholine but there was no response. The IV had blown. A repeat dose of both medications was given through a different IV site and the meds were successful. He was intubated without difficulty with a 7.5 endotracheal tube. Shortly after intubation, the patient became bradycardic and hypotensive. He was given 1 mg of IV epinephrine with improvement of symptoms. Blood pressure and pulse improved. He never required CPR, he never completely lost his pulse. The patient's peripheral IVs eventually blew and were lost. I did attempt to place a right femoral triple-lumen catheter however, I could not pass the wire through the vein. The vein was collapsed on ultrasound. A left foot vein was found and used for a brief time. A left IO proximal tibial line was placed. The ICU team was able to place a right internal jugular line. In addition to the milligram of epinephrine that he received earlier, he was given a pulse dose of epinephrine, 2 mL. This was given as his blood pressure was again decreasing. This medication worked well. The patient received 50 mEq of bicarb x2. He received IV cefepime as empiric antibiotic coverage. The patient received 2 L of IV saline. He was given 0.5 mg of IV Versed to help with sedation. He was ordered for a propofol drip to [facility] with sedation. After the above treatment, the patient's blood pressure was in the 90s systolic, his pulse had decreased, his O2 saturation was in the 90s. He appeared markedly improved. I did talk to the family about the patient's critical nature. They understand that he is quite ill. The patient is being hospitalized in the ICU. I did speak with the ICU team, case management as well as the on-call hospitalist. In short, the sudden cause of respiratory distress earlier today is unclear, infection of course is certainly a possibility. He is being treated for the possibility of sepsis. He did receive 2 L of IV saline as sepsis protocol for 30 cc/kg. This dose was based on actual body weight. Of note, there was delay in administering the IV fluids and IV antibiotics as we could not obtain adequate IV access. Once the IO and central line were placed, we were able to administer the appropriate medications. Of note CTs of the chest and abdomen were ordered by the ICU team, these were to be done on the way to the ICU. The results are pending. DISPOSITION: Patient presentation and findings warrant a hospital stay in the ICU. Past Med/Surg History Medical History COPD (chronic obstructive pulmonary disease) Glaucoma Social History Preferred Language: Guyanese Results & Data (ED) Vital Signs Vital Signs - 24 hr 01/11/23 20:11 01/11/23 20:13 01/11/23 20:07 Pulse Rate 131 H 126 H 130 H Pulse Rate from SpO2 Sensor 130 H Respiratory Rate 32 H 22 Blood Pressure 129/89 Blood Pressure Mean 102 Pulse Oximetry 74 L 73 L Fraction of Inspired Oxygen Sepsis New/Unexplained Change in Mental Status N/A Sepsis Action Taken by Nursing Physician Notified End-Tidal CO2 01/11/23 20:10 01/11/23 20:10 01/11/23 20:15 Pulse Rate 132 H 127 H Pulse Rate from SpO2 Sensor 132 H 128 H Respiratory Rate 19 Blood Pressure 131/90 131/90 Blood Pressure Mean 98 103 Pulse Oximetry 74 L 72 L Fraction of Inspired Oxygen Sepsis New/Unexplained Change in Mental Status Sepsis Action Taken by Nursing End-Tidal CO2 01/11/23 20:15 01/11/23 20:20 01/11/23 20:25 Pulse Rate 131 H 83 Pulse Rate from SpO2 Sensor 131 H Respiratory Rate Blood Pressure 129/89 121/85 Blood Pressure Mean 102 97 Pulse Oximetry 80 L Fraction of Inspired Oxygen Sepsis New/Unexplained Change in Mental Status Sepsis Action Taken by Nursing End-Tidal CO2 01/11/23 20:25 01/11/23 20:27 01/11/23 20:30 Pulse Rate 67 116 H Pulse Rate from SpO2 Sensor Respiratory Rate Blood Pressure 43/33 L 144/107 H Blood Pressure Mean 45 36 119 Pulse Oximetry Fraction of Inspired Oxygen Sepsis New/Unexplained Change in Mental Status Sepsis Action Taken by Nursing End-Tidal CO2 01/11/23 20:35 01/11/23 20:40 01/11/23 20:50 Pulse Rate 131 H 132 H Pulse Rate from SpO2 Sensor 134 H 132 H Respiratory Rate 25 H 18 Blood Pressure 137/109 H 99/77 L 86/65 L Blood Pressure Mean 118 84 72 Pulse Oximetry 56 L 85 L Fraction of Inspired Oxygen Sepsis New/Unexplained Change in Mental Status Sepsis Action Taken by Nursing End-Tidal CO2 43 44 01/11/23 20:50 01/11/23 20:56 01/11/23 21:12 Pulse Rate 141 H 128 H 114 H Pulse Rate from SpO2 Sensor Respiratory Rate 26 H 26 H 26 H Blood Pressure 86/65 L 87/72 L 69/45 L Blood Pressure Mean 72 77 53 Pulse Oximetry 85 L 80 L Fraction of Inspired Oxygen 100 100 Sepsis New/Unexplained Change in Mental Status Sepsis Action Taken by Nursing End-Tidal CO2 34 32 25 01/11/23 21:35 01/11/23 21:41 01/11/23 21:46 Pulse Rate 117 H 113 H 112 H Pulse Rate from SpO2 Sensor Respiratory Rate 26 H 30 H 30 H Blood Pressure 90/74 L 94/62 L 94/58 L Blood Pressure Mean 79 72 70 Pulse Oximetry 90 95 Fraction of Inspired Oxygen 80 80 80 Sepsis New/Unexplained Change in Mental Status Sepsis Action Taken by Nursing End-Tidal CO2 33 30 30 01/11/23 22:00 01/11/23 22:05 01/11/23 22:05 Pulse Rate 109 H 117 H Pulse Rate from SpO2 Sensor 117 H Respiratory Rate 30 H 30 H Blood Pressure 102/61 104/89 Blood Pressure Mean 74 94 Pulse Oximetry 87 L 86 L Fraction of Inspired Oxygen 80 Sepsis New/Unexplained Change in Mental Status Sepsis Action Taken by Nursing End-Tidal CO2 28 28 Home Medications Current Medication List: was personally reviewed by me Laboratory Data Attestation: I reviewed the patient's lab results. 01/11/23 Unknown 01/11/23 Unknown Lab Results 01/11/23 01/11/23 01/11/23 Range/Units 20:42 21:27 21:30 POC Hgb 11.9 L 10.5 L (14.0-18.0) g/dl POC Hct 35 L 31 L (42-52) % POC pH 7.16 L* (7.35-7.45) POC pCO2 91 H (35-46) mmHg POC pO2 66 L (80-95) mmHg POC HCO3 32 H (19-24) hemant/L POC Total CO2 35 H 24 (24-31) mmol/L POC Base Excess 4.0 H (-9-1.8) hemant/L POC ABG O2 Sat 85.0 L (90-95) % POC Sodium 138 142 (135-144) mmol/L POC Potassium 4.7 4.9 (3.3-5.0) mmol/L POC Chloride 106 (101-112) mmol/L POC Anion Gap 18.0 (16-25) mmol/L POC BUN 31 H (7-18) mg/dl POC Creatinine 1.0 (0.6-1.3) mg/dl POC Glucose (other) 206 H (70-99) mg/dl POC Ioniz Calcium Tracey 1.08 L (1.12-1.32) mmol/l Adenovirus (PCR) Not Detected (NotDetected) B. pertussis DNA (PCR) Not Detected (NotDetected) B.parapertussis DNA PCR Not Detected (NotDetected) C. pneumoniae DNA (PCR) Not Detected (NotDetected) Coronavirus OC43 (PCR) Not Detected (NotDetected) Coronavirus HKU1 (PCR) Not Detected (NotDetected) Coronavirus 229E (PCR) Not Detected (NotDetected) SARS-CoV-2 (PCR) Not Detected (NotDetected) Coronavirus NL63 (PCR) Not Detected (NotDetected) Human Metapneumovir PCR Not Detected (NotDetected) Influenza Type A (PCR) Not Detected (NotDetected) Influenza Type B (PCR) Not Detected (NotDetected) M. pneumoniae (PCR) Not Detected (NotDetected) Parainfluenza 1 (PCR) Not Detected (NotDetected) Parainfluenza 2 (PCR) Not Detected (NotDetected) Parainfluenza 3 (PCR) Not Detected (NotDetected) Parainfluenza 4 (PCR) Not Detected (NotDetected) RSV (PCR) Not Detected (NotDetected) Entero/Rhino (PCR) Not Detected (NotDetected) 01/11/23 Range/Units 21:35 POC Hgb 7.8 L (14.0-18.0) g/dl POC Hct 23 L (42-52) % POC pH 7.08 L* (7.35-7.45) POC pCO2 82 H (35-46) mmHg POC pO2 90 (80-95) mmHg POC HCO3 24 (19-24) hemant/L POC Total CO2 27 (24-31) mmol/L POC Base Excess -6.0 (-9-1.8) hemant/L POC ABG O2 Sat 92.0 (90-95) % POC Sodium 144 (135-144) mmol/L POC Potassium 3.7 (3.3-5.0) mmol/L POC Chloride (101-112) mmol/L POC Anion Gap (16-25) mmol/L POC BUN (7-18) mg/dl POC Creatinine (0.6-1.3) mg/dl POC Glucose (other) (70-99) mg/dl POC Ioniz Calcium Tracey (1.12-1.32) mmol/l Adenovirus (PCR) (NotDetected) B. pertussis DNA (PCR) (NotDetected) B.parapertussis DNA PCR (NotDetected) C. pneumoniae DNA (PCR) (NotDetected) Coronavirus OC43 (PCR) (NotDetected) Coronavirus HKU1 (PCR) (NotDetected) Coronavirus 229E (PCR) (NotDetected) SARS-CoV-2 (PCR) (NotDetected) Coronavirus NL63 (PCR) (NotDetected) Human Metapneumovir PCR (NotDetected) Influenza Type A (PCR) (NotDetected) Influenza Type B (PCR) (NotDetected) M. pneumoniae (PCR) (NotDetected) Parainfluenza 1 (PCR) (NotDetected) Parainfluenza 2 (PCR) (NotDetected) Parainfluenza 3 (PCR) (NotDetected) Parainfluenza 4 (PCR) (NotDetected) RSV (PCR) (NotDetected) Entero/Rhino (PCR) (NotDetected) Administered Medications Fentanyl Citrate (Fentanyl Bolus From Bag) 50 mcg IV Q60M PRN PRN Reason: Pain or Agitation Stop: 01/25/23 21:46 Last Admin: 01/11/23 22:04 Dose: 50 mcg Documented By: JT Co-signed By: BS Norepinephrine Bitartrate (Levophed/D5w) 4 mg in 250 mls @ 11.498 mls/hr IV .[id number] YOLI; Protocol Stop: 02/10/23 21:59 Last Titration: 01/11/23 22:15 Dose: 0.07 mcg/kg/min, 11.5 mls/hr Documented By: Admin: 01/11/23 21:59 Dose: 0.05 mcg/kg/min, 8.2 mls/hr Documented By: JT Co-signed By: ALISSA Fentanyl Citrate (Fentanyl Citrate) 2,500 mcg in 250 mls @ 5 mls/hr IV .Q50H YOLI; Protocol Stop: 01/25/23 21:59 Last Titration: 01/11/23 22:06 Dose: 50 mcg/hr, 5 mls/hr Documented By: JT Co-signed By: ALISSA Admin: 01/11/23 21:55 Dose: 25 mcg/hr, 2.5 mls/hr Documented By: JT Co-signed By: ALISSA Discontinued Medications Albuterol (Albut/Ipratrop 3mg/0.5mg Neb 3 Ml Vial) 12 ml NEB ONE ONE; Protocol Stop: 01/11/23 20:10 Last Admin: 01/11/23 20:20 Dose: 12 ml Documented By: ALISSA Fentanyl Citrate (Fentanyl Citrate 2,500 Mcg/250 Ml Bag) Confirm Administered Dose 2,500 mcg IV .STK-MED ONE Stop: 01/11/23 21:49 Last Admin: 01/11/23 23:19 Dose: Not Given Documented By: ALISSA Cefepime HCl (Maxipime) 2,000 mg in 20 mls @ 5 mls/min IV NOW STA; Protocol Stop: 01/11/23 21:27 Last Admin: 01/11/23 22:05 Dose: 5 mls/min Documented By: DOMINICK Sodium Chloride (Nss 1000ml) 2,000 mls @ 999 mls/hr IV .Q2H1M ONE Stop: 01/11/23 23:27 Last Infusion: 01/11/23 22:03 Dose: 0 mls/hr Documented By: Admin: 01/11/23 21:00 Dose: 999 mls/hr Documented By: DOMINICK Ioversol (Ioversol 350 Mg 125ml Prefilled Syringe) 118 ml IV ONCE ONE Stop: 01/11/23 22:22 Last Admin: 01/11/23 22:22 Dose: 118 ml Documented By: ASHLEIGH Midazolam HCl (Midazolam Hcl 5 Mg/Ml 2ml Vial) 0.5 mg IV NOW STA Stop: 01/11/23 21:13 Last Admin: 01/11/23 21:13 Dose: 0.5 mg Documented By: DOMINICK Miscellaneous (Rapid Sequence Induction Bag) Confirm Administered Dose 1 each N/A .STK-MED ONE Stop: 01/11/23 20:06 Last Admin: 01/11/23 23:18 Dose: Not Given Documented By: ALISSA Miscellaneous (Rapid Sequence Induction Bag) Confirm Administered Dose 1 each N/A .STK-MED ONE Stop: 01/11/23 20:06 Last Admin: 01/11/23 20:16 Dose: 1 each Documented By: ALISSA Norepinephrine Bitartrate (Norepinephrine/D5w 4 Mg/250 Ml) Confirm Administered Dose 4 mg IV .STK-MED ONE Stop: 01/11/23 21:50 Last Admin: 01/11/23 23:19 Dose: Not Given Documented By: ALISSA Propofol (Propofol Iv Emulsion 10 Mg/Ml 100 Ml Vial) Confirm Administered Dose 1,000 mg IV .STK-MED ONE Stop: 01/11/23 20:23 Last Admin: 01/11/23 21:13 Dose: Not Given Documented By: DOMINICK Sodium Bicarbonate (Sodium Bicarb 8.4% Inj 50 Meq/50 Ml Syr) 100 meq IV NOW STA Stop: 01/11/23 23:06 Last Admin: 01/11/23 23:07 Dose: 100 meq Documented By: ALISSA Imaging Data My Impression: Chest x-ray: Per my review, there are chronic changes of emphysema/COPD. There is what appears to be a chronic consolidation in the right upper lung. No pneumothorax. The endotracheal tube is in proper position. There is some congestion in both lower lungs consistent with potential chronic change versus early patchy infiltrate. Repeat chest x-ray: Per my review there is no significant change in the lung findings. The patient's right IJ is in proper position. Discharge Plan Visit Data Chief Complaint: Respiratory Distress Stated Complaint: RESPIRATORY DISTRESS ED Provider: Wolf Lerma Discharge Problem: Respiratory failure, Hypoxia, Tachycardia, Hypotension, Sepsis, Anemia, Acute dehydration Patient Disposition: Admitted As Inpatient Condition: Critical Discharge Instructions Interventions: ED Discharge Assessment Last Done: 01/11/23 22:30 Respiratory failure Qualifiers: Chronicity: acute Respiratory failure complication: hypoxia and hypercapnia Qualified Code(s): J96.01 - Acute respiratory failure with hypoxia Hypotension Qualifiers: Hypotension type: unspecified hypotension type Qualified Code(s): I95.9 - H ypotension, unspecified Sepsis Qualifiers: Sepsis type: sepsis due to unspecified organism Sepsis acute organ dysfunction status: with acute organ dysfunction Severe sepsis acute organ dysfunction type: acute respiratory failure Acute respiratory failure type: unspecified Severe sepsis shock status: with septic shock Qualified Code(s): A41.9 - Sepsis, unspecified organism Anemia Qualifiers: Anemia type: unspecified type Qualified Code(s): D64.9 - Anemia, unspecified
[2023-01-11] MEDS ORDERED: SODIUM BICARB 8.4% INJ 50 MEQ/50 ML SYR IV STA (23:05)
[2023-01-11] MEDS ORDERED: SODIUM BICARBONATE 8.4% 100 MEQ in WATER, STERILE 1,000 ML IV SCH (23:30)
[2023-01-11] MEDS ORDERED: ALBUTEROL 0.5% NEB SOLN 2.5 MG/0.5 ML VIAL NEB PRN (23:36)
--- NOTE | 2023-01-11 23:38 | CT Scan Report ---
Exam(s): CT ABDOMEN + PELVIS Without Contrast EXAM: CT Abdomen and Pelvis Without Intravenous Contrast CLINICAL HISTORY: Reason for exam: shock, elevated LA. TECHNIQUE: Axial computed tomography images of the abdomen and pelvis without intravenous contrast. CTDI is 9.58 mGy and DLP is 355.04 mGy-cm. Automated exposure control was utilized for the study. A dose lowering technique was utilized adhering to the principles of ALARA. COMPARISON: No relevant prior studies available. FINDINGS: Lung bases: Bibasilar dependent atelectasis with superimposed bilateral basilar infiltrates diffuse changes COPD. ABDOMEN: Liver: Unremarkable. Gallbladder and bile ducts: Unremarkable. No calcified stones. No ductal dilation. Pancreas: Unremarkable. No ductal dilation. Spleen: Unremarkable. No splenomegaly. Adrenals: Unremarkable. No mass. Kidneys and ureters: Unremarkable. No obstructing stones. No hydronephrosis. Stomach and bowel: esophageal catheter with its tip in the gastric fundus. Large amount of stool within the colon. . PELVIS: Appendix: No findings to suggest acute appendicitis. Bladder: Mildly distended urinary bladder. No stones. Reproductive: Unremarkable as visualized. ABDOMEN and PELVIS: Intraperitoneal space: Unremarkable. No free air. No significant fluid collection. Bones/joints: No acute fracture. No dislocation. Soft tissues: Unremarkable. Vasculature: Unremarkable. No abdominal aortic aneurysm. Lymph nodes: Unremarkable. No enlarged lymph nodes. IMPRESSION: Bibasilar infiltrates consistent with pneumonia. Constipation Electronically signed by: Esvin Duran MD 01/11/23 23:37 PM
--- NOTE | 2023-01-11 23:42 | CT Scan Report ---
Exam(s): CTA CHEST IV Amt: 118 ml optiray 350 EXAM: CT Angiography Chest With Intravenous Contrast CLINICAL HISTORY: Reason for exam: PE. TECHNIQUE: Axial computed tomographic angiography images of the chest with intravenous contrast. CTDI is 9.58 mGy and DLP is 355.04 mGy-cm. Automated exposure control was utilized for the study. A dose lowering technique was utilized adhering to the principles of ALARA. MIP reconstructed images were created and reviewed. COMPARISON: No relevant prior studies available. FINDINGS: Pulmonary arteries: Unremarkable. No pulmonary embolism. Aorta: No acute findings. No thoracic aortic aneurysm. Lungs: Bilateral basilar infiltrates. Diffuse changes COPD. No mass. Pleural space: Unremarkable. No significant effusion. No pneumothorax. Heart: Unremarkable. No cardiomegaly. No significant pericardial effusion. No evidence of RV dysfunction. Bones/joints: No acute fracture. No dislocation. Soft tissues: Unremarkable. Lymph nodes: Unremarkable. No enlarged lymph nodes. Tubes, lines and devices: Endotracheal tube with its tip just above the debbie. Esophageal catheter is present with its tip in the gastric fundus. More confluent opacities within the right upper lobe right-sided central venous catheter with its tip at the cavoatrial junction. IMPRESSION: Bilateral interstitial infiltrates in the lung bases consistent with infectious or inflammatory process. Electronically signed by: Esvin Duran MD 01/11/23 23:41 PM
[2023-01-11] MEDS ORDERED: Patient's ALLERGY Info needs ENTERED SCH (23:45)
[2023-01-12 00:14] LABS: Troponin I High Sensitivity 44.2 pg/ml (0-20)
[2023-01-12] MEDS ORDERED: STAT IV Infusion **Titration per Protocol STA (00:40)
[2023-01-12] MEDS: ALBUT/IPRATROP 3MG/0.5MG NEB 3 ML VIAL NEB SCH ×5 (00:50→19:48)
--- NOTE | 2023-01-12 01:25 | Procedure Note ---
Procedure Note Date of Service January 12, 2023 Note ARTERIAL LINE PROCEDURE NOTE: Procedure: Arterial Line Placement Attending: Dr. Brandon Light Provider: GEENA De La Rosa Indication: Monitoring on Pressors Anesthesia: Lidocaine 1% Line placed emergently in the setting of hypotension requiring multiple vasopressor support and need for continuous hemodynamic monitoring. A time-out was completed verifying correct patient, procedure, site, positioning, and implant(s) or special equipment if applicable. Allens test was performed to ensure adequate perfusion. Patients left groin was prepped and draped in the usual sterile fashion. Ultrasound guidance was used to aid needle placement. A 20g finder needle was introduced into the left femoral artery. Blood return was noted and guidewire was inserted into the left femoral artery and verified with ultrasound. Catheter was exchanged over the wire, and appropriate blood return noted. Transducer was attached and good waveform was observed. The patient tolerated the procedure well. Blood Loss: Minimal Complications: None Procedural Ultrasound Guidance: Procedure Date: 01/12/2023 Indication: Arterial line insertion Attending: Dr. Brandon Light Provider: GEENA De La Rosa Artery Identified: YES Line confirmed in Artery with ultrasound: Yes Complications: NONE Patient tolerated procedure: WELL Coding CPT Codes Tubes, Drains, and Vasc Access - Tubes, Drains, and Vasc Access: [id number] Arterial Cath/Cannulation Sampling/Monitoring/Transfusion ([id number]) Tubes, Drains, and Vasc Access - Tubes, Drains, and Vasc Access: [id number] Ultrasound Guidance For Vascular ([id number]) [facility] [place] Procedure Codes (Charges) Tubes, Drains, and Vasc Access Procedure 1: Tubes, Drains, and Vasc Access: [id number] Arterial Cath/Cannulation Sampling/Monitoring/Transfusion Procedure 2: Tubes, Drains, and Vasc Access: [id number] Ultrasound Guidance For Vascular
[2023-01-12] MEDS ORDERED: PLASMA-LYTE A 1,000 ML IV ONE ×2 (01:27→04:15)
[2023-01-12] MEDS ORDERED: HYDROCORTISONE SOD 100 MG in SYRINGE 0 ML IV STA (01:35)
[2023-01-12] MEDS: Patient's HEIGHT &/or WEIGHT Needed SCH ×2 (01:45→02:50)
[2023-01-12] MEDS: VASOPRESSIN 20 UNITS in 0.9 % SODIUM CHLORIDE 100 ML IV SCH ×3 (01:47→20:12)
[2023-01-12 01:57] LABS: iSTAT Art Bld Gas pCO2 Correct 46 mmHg (35-46); iSTAT Art Bld Gas pH Corrected 7.304 (7.35-7.45); iSTAT Arterial Blood Gas HCO3 23 meg/L (19-24); iSTAT Arterial Blood Gas pCO2 48 mmHg (35-46); iSTAT Arterial Blood Gas pH 7.29 (7.35-7.45); iSTAT Arterial Blood Gas pO2 215 mmHg (80-95); iSTAT Arterial Blood Gas pO2 C 210; iSTAT Carbon Dioxide 25 mmol/L (24-31); iSTAT FiO2 85 %; iSTAT Hematocrit 29 % (42-52); iSTAT Hemoglobin 9.9 g/dl (14.0-18.0); iSTAT Potassium 4.7 mmol/L (3.3-5.0); iSTAT Site Art Line; iSTAT Sodium 141 mmol/L (135-144)
[2023-01-12 01:59] LABS: Hematocrit (blood only) 27.6 % (42.0-52.0); Hemoglobin 8.5 g/dl (14.0-18.0); Mean Corpuscular Hemoglobin 29.9 pg (25.0-34.0); Mean Corpuscular Hgb Conc 30.8 g/dL (32.0-36.0); Mean Corpuscular Volume 97.2 fL (80.0-100.0); Mean Platelet Volume 10.3 fL (9.4-12.4); Platelet Count 282 K/uL (130-400); RDW Coefficient of Variation 14.2 % (11.5-14.5); RDW Standard Deviation 50.5 fL (36.4-46.3); Red Blood Count 2.84 M/uL (4.70-6.10); White Blood Count 13.76 K/ul (4.8-10.8)
[2023-01-12 02:15] LABS: Anion Gap 14 (3-11); BUN Creatinine Ratio 32.4 (10-20); Blood Urea Nitrogen 35 mg/dl (6-23); Carbon Dioxide 22 mmol/L (21-32); Chloride 105 mmol/L (98-107); Creatinine Clr Calc Pharmacy 30.6 ml/min; Est GFR (African American) 74.7 ml/min; Est GFR (Non-African American) 64.5 ml/min; Glucose 176 mg/dl (70-99(Fasting)); Magnesium 1.9 mg/dl (1.7-2.4); Phosphorus 4.3 mg/dl (2.5-4.9); Potassium 4.7 mmol/L (3.5-5.1); Sodium 141 mmol/L (136-145)
[2023-01-12 02:26] LABS: Basophils # (auto) 0.01 K/uL (0-0.2); Basophils % (auto) 0.1 %; Immature Granulocytes # (auto) 0.09 K/uL (0.01-0.20); Immature Granulocytes % (auto) 0.7 %; Lymphocytes # (auto) 0.12 K/uL (1.2-3.4); Lymphocytes % (auto) 0.9 %; Monocytes # (auto) 1.13 K/uL (0.11-0.59); Monocytes % (auto) 8.2 %; Neutrophils # (auto) 12.41 K/uL (1.40-6.50); Neutrophils % (auto) 90.1 %
[2023-01-12] MEDS ORDERED: AZITHROMYCIN 500 MG in DEXTROSE 5% 250 ML IV SCH (02:30)
[2023-01-12] MEDS: PLASMA-LYTE A 1,000 ML IV SCH ×2 (02:50→17:22)
[2023-01-12] MEDS ORDERED: MAGNESIUM SULFATE / D5W 1 GM/100 ML BAG IV ONE (02:59)
[2023-01-12] MEDS ORDERED: ALBUT/IPRATROP 3MG/0.5MG NEB 3 ML VIAL ONE (04:24)
[2023-01-12 04:28] LABS: Troponin I High Sensitivity 62.2 pg/ml (0-20)
[2023-01-12] MEDS: NOREPINEPHRINE/D5W 4 MG/250 ML PLCT IV SCH (07:11)
[2023-01-12] MEDS ORDERED: CALCIUM CHLORIDE 10% 1,000 MG in DEXTROSE 5% 50 ML IV ONE (08:00)
--- NOTE | 2023-01-12 08:04 | Procedure Note ---
Procedure Note: Bronchoscopy Procedure Procedure: Fiberoptic bronchoscopy Bronchoalveolar lavage Provider: Chucky Light MD Consent: Signed by patient and timeout verified prior to procedure. Indication: Pneumonia, respiratory failure Procedure: Patient was intubated in the ICU. No family immediately available and patient unable to provide verbal or written consent. Procedure was emergent. Patient was placed on her percent FiO2 on the ventilator. The Bodai adapter was placed in line with the ventilator circuit. Patient was receiving IV sedation, please refer to ICU notes The disposable bronchoscope was advanced through the Bodai adapter through the endotracheal tube. The tube was sounded and found to be approximately 1.5 cm above the debbie. Inspection was conducted. There were mucopurulent secretions present within the left lower lobe which were lavaged and collected for microbiologic analysis. Left-sided airways were patent but did demonstrate inflamed mucosa. Scope was then directed into the right upper lobe. A BAL was performed with instillation of 2 aliquots of 20 cc saline. Return was cloudy and purulent appearing. No evidence of bleeding. The right-sided airways appeared patent as well. The bronchoscope was then removed from the airways. The patient tolerated the procedure well without obvious complication. Patient remained intubated in the ICU Impression: 1. Endotracheal tube in good position. 2. Purulent secretions emanating from the left lower lobe. 3. Successful BAL right upper lobe with purulent material return. Await microbiologic studies [facility] [place] Procedure Codes (Charges) Pulmonary/Thoracic Procedure 1: Pulmonary and Thoracic: 95799 Dx bronchoscopy/BAL
[2023-01-12] MEDS: ICU Protocol for HYPERglycemia SCH ×4 (08:07→21:28)
[2023-01-12] MEDS: HEPARIN SOD 5,000 UNIT/0.5 ML VIAL SQ SCH ×2 (08:08→21:28)
[2023-01-12] MEDS ORDERED: VANCOMYCIN CONSULT ACTIVE PRN (08:16)
--- NOTE | 2023-01-12 08:17 | Critical Care Progress Note ---
Date of Service January 12, 2023 Assessment & Plan (1) Acute and chronic respiratory failure: (2) COPD (chronic obstructive pulmonary disease): (3) Septic shock: (4) Hypoxia: (5) Tachycardia: (6) Pneumonia: Plan Reason Critically Ill: 82-year-old male with past medical history significant for COPD (2 L nasal cannula at baseline) and recent hospitalization for respiratory failure secondary to pneumonia requiring intubation. Admitted to ICU following acute on chronic hypercapnic and hypoxic respiratory failure with failure of BiPAP requiring intubation. CT imaging with consolidations consistent with pneumonia and now with septic shock requiring vasopressor support. Neuro - Sedation: Fentanyl drip, Versed push as needed Cardiac - Severe sepsis with septic shock. We will recheck lactate as it was climbing before. Discontinue bicarb drip given his hypercarbia. Replace calcium. Check random cortisol. Patient may benefit from additional volume administration. He has received 5 L of crystalloid so far so we will check NICOM to see whether or not he is still volume responsive. Continue Levophed and vasopressin. Respiratory - Acute on chronic hypoxemic and acute hypercarbic respiratory failure. Continue mechanical ventilation. Follow-up blood gas. Patient is currently on assist control with a rate of 30 tidal volume 320 PEEP of 10 and FiO2 of 0.6. Bronchoscopy was performed this morning with purulent secretions. The this respiratory rate will need to watch for air trapping. He does not appear bronchospastic and in the setting of severe sepsis and pneumonia we will discontinue steroids. Continue DuoNebs as needed. GI - Hold on tube feeding pending improvement in the patient's hemodynamics. Patient appears significantly malnourished. Check prealbumin. Nutritional consult RENAL/LYTES - Hypocalcemia: Replete today and recheck. Other electrolytes okay. He has a respiratory acidosis and will discontinue bicarb drip. Tolerate permissive hypercapnia in an effort to prevent ventilator associated lung injury. - Foleystrict I's and O's ENDO - Glycemic control per protocol. Check random cortisol HEME - Anemia: Unclear chronicity. No evidence of acute blood loss. Type and screen. ID - Day #2 cefepime/azithromycin. Patient is at risk for MRSA given recent hospitalization, antibiotics etc. Will place on vancomycin pending MRSA swab and bronchoscopic cultures. LINES/IV ACCESS - CVL, A-line DVT PROPHYLAXIS - SCDs I have personally spent 76 minutes of critical care time in the direct management of this patient. This is a life/limb threatening event. This includes time spent evaluating patient, direct bedside care, chart review, placing orders, interpretation of diagnostic studies, discussion with consultants, patient, and family members, as well as other required patient management activities. This time is exclusive of all separately billable procedures, and teaching time and separate from and in addition to any other critical care service time. Patient is critically ill with multiorgan system dysfunction. Significant possibility of clinical decline and or . Admission and Anticipated Discharge Date Admission Date: January 11, 2023 Subjective Patient seen and examined. EMR reviewed. Discussed on multidisciplinary rounds and with bedside critical care nurse. The patient is intubated sedated and unable to provide any history. No family immediately available Review of Systems Review of Systems: Unobtainable due to endotracheal tube Physical Exam Constitutional: + cachectic and + mechanically ventilated Neck: trachea midline, no thyromegaly Respiratory: normal respiratory effort, lungs clear to auscultation Cardiovascular: Rate/Rhythm: regular rate and + tachycardic Heart Sounds: normal S1 and normal S2; no murmur Extremities: no edema Gastrointestinal (Abdomen): normal bowel sounds, soft, nontender, no hepatosplenomegaly Musculoskeletal: Extremities: extremities normal to inspection Skin: no rashes, warm and dry Neurologic: Nonfocal exam Lymphatic: no cervical lymphadenopathy Results & Data Results & Data Vital Signs (Past 12 Hours) Vital Signs Temp Pulse Pulse Resp BP BP Pulse Ox 01/12/23 06:30 38.0 C H 120 H 30 H 100 01/12/23 06:30 107/72 01/12/23 06:15 37.9 C H 120 H 3 L 99 01/12/23 06:15 105/69 01/12/23 06:00 37.8 C H 119 H 30 H 100 01/12/23 06:00 103/70 01/12/23 05:45 91/65 L 01/12/23 05:45 37.8 C H 117 H 11 L 99 01/12/23 05:30 37.7 C H 117 H 30 H 100 01/12/23 05:30 113/70 01/12/23 05:15 37.7 C H 116 H 26 H 100 01/12/23 05:15 121/71 01/12/23 05:00 37.7 C H 121 H 26 H 100 01/12/23 05:00 107/62 01/12/23 04:45 37.7 C H 128 H 26 H 100 01/12/23 04:45 127/74 01/12/23 04:30 37.7 C H 145 H 24 100 01/12/23 04:30 120/76 01/12/23 04:15 37.6 C H 146 H 24 100 01/12/23 04:15 96/58 L 01/12/23 04:00 37.4 C 139 H 25 H 100 01/12/23 03:45 37.2 C 141 H 25 H 98 01/12/23 03:45 97/50 L 01/12/23 03:30 37.0 C 147 H 15 98 01/12/23 03:30 107/74 01/12/23 03:15 36.8 C 127 H 30 H 98 01/12/23 03:15 93/59 L 01/12/23 03:00 36.6 C 125 H 30 H 98 01/12/23 03:00 94/65 L 01/12/23 02:45 36.4 C L 123 H 30 H 98 01/12/23 02:45 100/62 01/11/23 23:15 30 H 01/11/23 22:45 108 H 26 H 86 L 01/12/23 04:00 01/12/23 04:33 128 H 30 H 100 01/12/23 02:30 36.3 C L 123 H 30 H 99 01/12/23 02:30 105/75 01/12/23 02:15 133/89 01/12/23 02:15 36.1 C L 126 H 30 H 100 01/12/23 02:00 36.0 C L 128 H 30 H 100 01/12/23 02:00 107/79 01/12/23 01:48 35.9 C L 127 H 30 H 100 01/12/23 01:48 107/81 01/12/23 01:45 35.9 C L 128 H 30 H 100 01/12/23 01:37 35.8 C L 129 H 30 H 100 01/12/23 01:37 99/67 L 01/12/23 01:36 35.8 C L 127 H 30 H 100 01/12/23 01:31 35.8 C L 119 H 30 H 100 01/12/23 01:31 44/38 L 01/12/23 01:30 35.7 C L 116 H 30 H 98 01/12/23 01:16 76/50 L 01/12/23 01:16 35.6 C L 120 H 30 H 100 01/12/23 01:00 35.4 C L 111 H 30 H 100 01/12/23 01:00 91/55 L 01/12/23 00:46 35.2 C L 110 H 30 H 97 01/12/23 00:46 68/57 L 01/12/23 00:30 35.0 C L 112 H 30 H 88 L 01/12/23 00:30 81/57 L 01/12/23 00:25 63/50 L 01/12/23 00:25 34.9 C L 119 H 30 H 82 L 01/12/23 00:15 34.8 C L 115 H 30 H 100 01/12/23 00:15 78/66 L 01/12/23 00:01 34.6 C L 108 H 30 H 100 01/12/23 00:01 75/47 L 01/12/23 00:00 34.6 C L 108 H 30 H 100 01/12/23 00:00 75/51 L 01/11/23 23:30 34.3 C L 111 H 30 H 91 01/11/23 23:30 73/53 L 01/11/23 23:05 33.6 C L 112 H 24 95 01/11/23 23:05 79/60 L 01/11/23 23:00 33.1 C L 114 H 25 H 94 01/11/23 23:00 73/52 L 01/12/23 00:00 01/11/23 23:59 01/11/23 23:59 32.3 C L 129 H 21 74/33 L 81 L 01/12/23 00:50 115 H 30 H 99 01/11/23 22:05 104/89 01/11/23 22:05 117 H 30 H 86 L 01/11/23 22:00 109 H 30 H 102/61 87 L 01/11/23 21:46 112 H 30 H 94/58 L 95 01/11/23 21:41 113 H 30 H 94/62 L 01/11/23 21:35 117 H 26 H 90/74 L 90 01/11/23 21:12 114 H 26 H 69/45 L 80 L 01/11/23 20:56 128 H 26 H 87/72 L 85 L 01/11/23 20:50 141 H 26 H 86/65 L 01/11/23 20:50 86/65 L 01/11/23 20:40 132 H 18 99/77 L 85 L 01/11/23 20:35 131 H 25 H 137/109 H 56 L 01/11/23 20:30 116 H 144/107 H 01/11/23 20:27 67 43/33 L 01/11/23 20:25 83 01/11/23 20:20 131 H 121/85 80 L 01/11/23 20:15 129/89 01/11/23 20:15 127 H 72 L 01/11/23 20:10 132 H 19 131/90 74 L 01/11/23 20:10 131/90 01/11/23 20:07 130 H 22 73 L 01/11/23 20:13 126 H 32 H 129/89 74 L 01/11/23 20:11 131 H O2 Del Method FiO2 01/12/23 06:30 01/12/23 06:30 01/12/23 06:15 01/12/23 06:15 01/12/23 06:00 01/12/23 06:00 01/12/23 05:45 01/12/23 05:45 01/12/23 05:30 01/12/23 05:30 01/12/23 05:15 01/12/23 05:15 01/12/23 05:00 01/12/23 05:00 01/12/23 04:45 01/12/23 04:45 01/12/23 04:30 01/12/23 04:30 01/12/23 04:15 01/12/23 04:15 01/12/23 04:00 01/12/23 03:45 01/12/23 03:45 01/12/23 03:30 01/12/23 03:30 01/12/23 03:15 01/12/23 03:15 01/12/23 03:00 01/12/23 03:00 01/12/23 02:45 01/12/23 02:45 01/11/23 23:15 100 01/11/23 22:45 100 01/12/23 04:00 60 01/12/23 04:33 60 01/12/23 02:30 01/12/23 02:30 01/12/23 02:15 01/12/23 02:15 01/12/23 02:00 01/12/23 02:00 01/12/23 01:48 01/12/23 01:48 01/12/23 01:45 01/12/23 01:37 01/12/23 01:37 01/12/23 01:36 01/12/23 01:31 01/12/23 01:31 01/12/23 01:30 01/12/23 01:16 01/12/23 01:16 01/12/23 01:00 01/12/23 01:00 01/12/23 00:46 01/12/23 00:46 01/12/23 00:30 01/12/23 00:30 01/12/23 00:25 01/12/23 00:25 01/12/23 00:15 01/12/23 00:15 01/12/23 00:01 01/12/23 00:01 01/12/23 00:00 01/12/23 00:00 01/11/23 23:30 01/11/23 23:30 01/11/23 23:05 01/11/23 23:05 01/11/23 23:00 01/11/23 23:00 01/12/23 00:00 100 01/11/23 23:59 Mechanical Vent 100 01/11/23 23:59 Mechanical Vent 100 01/12/23 00:50 Mechanical Vent 80 01/11/23 22:05 01/11/23 22:05 01/11/23 22:00 80 01/11/23 21:46 80 01/11/23 21:41 80 01/11/23 21:35 80 01/11/23 21:12 100 01/11/23 20:56 100 01/11/23 20:50 01/11/23 20:50 01/11/23 20:40 01/11/23 20:35 01/11/23 20:30 01/11/23 20:27 01/11/23 20:25 01/11/23 20:20 01/11/23 20:15 01/11/23 20:15 01/11/23 20:10 01/11/23 20:10 01/11/23 20:07 01/11/23 20:13 01/11/23 20:11 Critical Care Results & Data Vital Signs (Past 12 Hours) Vital Signs Temp Pulse Pulse Resp BP BP Pulse Ox 01/12/23 06:30 38.0 C H 120 H 30 H 100 01/12/23 06:30 107/72 01/12/23 06:15 37.9 C H 120 H 3 L 99 01/12/23 06:15 105/69 01/12/23 06:00 37.8 C H 119 H 30 H 100 01/12/23 06:00 103/70 01/12/23 05:45 91/65 L 01/12/23 05:45 37.8 C H 117 H 11 L 99 01/12/23 05:30 37.7 C H 117 H 30 H 100 01/12/23 05:30 113/70 01/12/23 05:15 37.7 C H 116 H 26 H 100 01/12/23 05:15 121/71 01/12/23 05:00 37.7 C H 121 H 26 H 100 01/12/23 05:00 107/62 01/12/23 04:45 37.7 C H 128 H 26 H 100 01/12/23 04:45 127/74 01/12/23 04:30 37.7 C H 145 H 24 100 01/12/23 04:30 120/76 01/12/23 04:15 37.6 C H 146 H 24 100 01/12/23 04:15 96/58 L 01/12/23 04:00 37.4 C 139 H 25 H 100 01/12/23 03:45 37.2 C 141 H 25 H 98 01/12/23 03:45 97/50 L 01/12/23 03:30 37.0 C 147 H 15 98 01/12/23 03:30 107/74 01/12/23 03:15 36.8 C 127 H 30 H 98 01/12/23 03:15 93/59 L 01/12/23 03:00 36.6 C 125 H 30 H 98 01/12/23 03:00 94/65 L 01/12/23 02:45 36.4 C L 123 H 30 H 98 01/12/23 02:45 100/62 01/11/23 23:15 30 H 01/11/23 22:45 108 H 26 H 86 L 01/12/23 04:00 01/12/23 04:33 128 H 30 H 100 01/12/23 02:30 36.3 C L 123 H 30 H 99 01/12/23 02:30 105/75 01/12/23 02:15 133/89 01/12/23 02:15 36.1 C L 126 H 30 H 100 01/12/23 02:00 36.0 C L 128 H 30 H 100 01/12/23 02:00 107/79 01/12/23 01:48 35.9 C L 127 H 30 H 100 01/12/23 01:48 107/81 01/12/23 01:45 35.9 C L 128 H 30 H 100 01/12/23 01:37 35.8 C L 129 H 30 H 100 01/12/23 01:37 99/67 L 01/12/23 01:36 35.8 C L 127 H 30 H 100 01/12/23 01:31 35.8 C L 119 H 30 H 100 01/12/23 01:31 44/38 L 01/12/23 01:30 35.7 C L 116 H 30 H 98 01/12/23 01:16 76/50 L 01/12/23 01:16 35.6 C L 120 H 30 H 100 01/12/23 01:00 35.4 C L 111 H 30 H 100 01/12/23 01:00 91/55 L 01/12/23 00:46 35.2 C L 110 H 30 H 97 01/12/23 00:46 68/57 L 01/12/23 00:30 35.0 C L 112 H 30 H 88 L 01/12/23 00:30 81/57 L 01/12/23 00:25 63/50 L 01/12/23 00:25 34.9 C L 119 H 30 H 82 L 01/12/23 00:15 34.8 C L 115 H 30 H 100 01/12/23 00:15 78/66 L 01/12/23 00:01 34.6 C L 108 H 30 H 100 01/12/23 00:01 75/47 L 01/12/23 00:00 34.6 C L 108 H 30 H 100 01/12/23 00:00 75/51 L 01/11/23 23:30 34.3 C L 111 H 30 H 91 01/11/23 23:30 73/53 L 01/11/23 23:05 33.6 C L 112 H 24 95 01/11/23 23:05 79/60 L 01/11/23 23:00 33.1 C L 114 H 25 H 94 01/11/23 23:00 73/52 L 01/12/23 00:00 01/11/23 23:59 01/11/23 23:59 32.3 C L 129 H 21 74/33 L 81 L 01/12/23 00:50 115 H 30 H 99 01/11/23 22:05 104/89 01/11/23 22:05 117 H 30 H 86 L 01/11/23 22:00 109 H 30 H 102/61 87 L 01/11/23 21:46 112 H 30 H 94/58 L 95 01/11/23 21:41 113 H 30 H 94/62 L 01/11/23 21:35 117 H 26 H 90/74 L 90 01/11/23 21:12 114 H 26 H 69/45 L 80 L 01/11/23 20:56 128 H 26 H 87/72 L 85 L 01/11/23 20:50 141 H 26 H 86/65 L 01/11/23 20:50 86/65 L 01/11/23 20:40 132 H 18 99/77 L 85 L 01/11/23 20:35 131 H 25 H 137/109 H 56 L 01/11/23 20:30 116 H 144/107 H 01/11/23 20:27 67 43/33 L 01/11/23 20:25 83 01/11/23 20:20 131 H 121/85 80 L 01/11/23 20:15 129/89 01/11/23 20:15 127 H 72 L 01/11/23 20:10 132 H 19 131/90 74 L 01/11/23 20:10 131/90 01/11/23 20:13 126 H 32 H 129/89 74 L 08/12/23 20:11 131 H O2 Del Method FiO2 01/12/23 06:30 01/12/23 06:30 01/12/23 06:15 01/12/23 06:15 01/12/23 06:00 01/12/23 06:00 01/12/23 05:45 01/12/23 05:45 01/12/23 05:30 01/12/23 05:30 01/12/23 05:15 01/12/23 05:15 01/12/23 05:00 01/12/23 05:00 01/12/23 04:45 01/12/23 04:45 01/12/23 04:30 01/12/23 04:30 01/12/23 04:15 01/12/23 04:15 01/12/23 04:00 01/12/23 03:45 01/12/23 03:45 01/12/23 03:30 01/12/23 03:30 01/12/23 03:15 01/12/23 03:15 01/12/23 03:00 01/12/23 03:00 01/12/23 02:45 01/12/23 02:45 01/11/23 23:15 100 01/11/23 22:45 100 01/12/23 04:00 60 01/12/23 04:33 60 01/12/23 02:30 01/12/23 02:30 01/12/23 02:15 01/12/23 02:15 01/12/23 02:00 01/12/23 02:00 01/12/23 01:48 01/12/23 01:48 01/12/23 01:45 01/12/23 01:37 01/12/23 01:37 01/12/23 01:36 01/12/23 01:31 01/12/23 01:31 01/12/23 01:30 01/12/23 01:16 01/12/23 01:16 01/12/23 01:00 01/12/23 01:00 01/12/23 00:46 01/12/23 00:46 01/12/23 00:30 01/12/23 00:30 01/12/23 00:25 01/12/23 00:25 01/12/23 00:15 01/12/23 00:15 01/12/23 00:01 01/12/23 00:01 01/12/23 00:00 01/12/23 00:00 01/11/23 23:30 01/11/23 23:30 01/11/23 23:05 01/11/23 23:05 01/11/23 23:00 01/11/23 23:00 01/12/23 00:00 100 01/11/23 23:59 Mechanical Vent 100 01/11/23 23:59 Mechanical Vent 100 01/12/23 00:50 Mechanical Vent 80 01/11/23 22:05 01/11/23 22:05 01/11/23 22:00 80 01/11/23 21:46 80 01/11/23 21:41 80 01/11/23 21:35 80 01/11/23 21:12 100 01/11/23 20:56 100 01/11/23 20:50 01/11/23 20:50 01/11/23 20:40 01/11/23 20:35 01/11/23 20:30 01/11/23 20:27 01/11/23 20:25 01/11/23 20:20 01/11/23 20:15 01/11/23 20:15 01/11/23 20:10 01/11/23 20:10 01/11/23 20:13 01/11/23 20:11 Lab & Micro Results (Past 24 Hours) RBC 2.84 M/uL (4.70-6.10) L 01/12/23 WBC 13.76 K/ul (4.8-10.8) H 01/12/23 Hgb 8.5 g/dl (14.0-18.0) L 01/12/23 Hct 27.6 % (42.0-52.0) L 01/12/23 MCV 97.2 fL (80.0-100.0) 01/12/23 MCH 29.9 pg (25.0-34.0) 01/12/23 MCHC 30.8 g/dL (32.0-36.0) L 01/12/23 RDW Standard Deviation 50.5 fL (36.4-46.3) H 01/12/23 RDW Coefficient of Variation 14.2 % (11.5-14.5) 01/12/23 Plt Count 282 K/uL (130-400) 01/12/23 MPV 10.3 fL (9.4-12.4) 01/12/23 Neutrophils (%) (Auto) 90.1 % 01/12/23 Lymphocytes (%) (Auto) 0.9 % 01/12/23 Monocytes # (Auto) 1.13 K/uL (0.11-0.59) H 01/12/23 Eosinophils # (Auto) 0.00 K/uL (0-0.50) 01/12/23 Immature Granulocyte % (Auto) 0.7 % 01/12/23 Neutrophils # (Auto) 12.41 K/uL (1.40-6.50) H 01/12/23 Lymphocytes # (Auto) 0.12 K/uL (1.2-3.4) L 01/12/23 Monocytes # (Auto) 1.13 K/uL (0.11-0.59) H 01/12/23 Eosinophils # (Auto) 0.00 K/uL (0-0.50) 01/12/23 Basophils # (Auto) 0.01 K/uL (0-0.2) 01/12/23 Immature Granulocyte # (Auto) 0.09 K/uL (0.01-0.20) 3 Na 141 mmol/L (136-145) 01/12/23 K 4.7 mmol/L (3.5-5.1) 01/12/23 Cl 105 mmol/L (98-107) 01/12/23 CO2 22 mmol/L (21-32) 01/12/23 Anion Gap 14 (3-11) H 01/12/23 BUN 35 mg/dl (6-23) H 01/12/23 Creatinine 1.08 mg/dl (0.6-1.4) 01/12/23 Estimated GFR ( Amer) 74.7 ml/min 01/12/23 Estimated GFR (Non-Af Amer) 64.5 ml/min 01/12/23 BUN/Creatinine Ratio 32.4 (10-20) H 01/12/23 Glu 176 mg/dl (70-99(Fasting)) H 01/12/23 Ca 7.0 mg/dl (8.6-10.3) L 01/12/23 Phosphorus Level 4.3 mg/dl (2.5-4.9) 01/12/23 Total Bilirubin 0.7 mg/dl (0.2-1.0) 01/11/23 AST 16 U/L (13-39) 01/11/23 ALT 13 U/L (7-52) 01/11/23 Alkaline Phosphatase 102 U/L (34-104) 01/11/23 TP 5.5 gm/dl (6.0-8.3) L 01/11/23 Albumin 2.8 gm/dl (3.4-5.0) L 01/11/23 Globulin 2.7 gm/dl (2.5-4.0) 01/11/23 Albumin/Globulin Ratio 1.0 (0.9-2) 01/11/23 Mg 1.9 mg/dl (1.7-2.4) 01/12/23 01:41 Calcium Level 7.0 mg/dl (8.6-10.3) L 01/12/23 01:41 Prothromb Time International Ratio 1.2 (0.9-1.1) H 01/11/23 23 :59 Genaro Test NA 01/12/23 01:42 Diagnostic Findings (Past 24 Hours) Abdomen/Pelvis CT 01/11/23 21:54 Exam(s): CT ABDOMEN + PELVIS Without Contrast EXAM: CT Abdomen and Pelvis Without Intravenous Contrast CLINICAL HISTORY: Reason for exam: shock, elevated LA. TECHNIQUE: Axial computed tomography images of the abdomen and pelvis without intravenous contrast. CTDI is 9.58 mGy and DLP is 355.04 mGy-cm. Automated exposure control was utilized for the study. A dose lowering technique was utilized adhering to the principles of ALARA. COMPARISON: No relevant prior studies available. FINDINGS: Lung bases: Bibasilar dependent atelectasis with superimposed bilateral basilar infiltrates diffuse changes COPD. ABDOMEN: Liver: Unremarkable. Gallbladder and bile ducts: Unremarkable. No calcified stones. No ductal dilation. Pancreas: Unremarkable. No ductal dilation. Spleen: Unremarkable. No splenomegaly. Adrenals: Unremarkable. No mass. Kidneys and ureters: Unremarkable. No obstructing stones. No hydronephrosis. Stomach and bowel: esophageal catheter with its tip in the gastric fundus. Large amount of stool within the colon. . PELVIS: Appendix: No findings to suggest acute appendicitis. Bladder: Mildly distended urinary bladder. No stones. Reproductive: Unremarkable as visualized. ABDOMEN and PELVIS: Intraperitoneal space: Unremarkable. No free air. No significant fluid collection. Bones/joints: No acute fracture. No dislocation. Soft tissues: Unremarkable. Vasculature: Unremarkable. No abdominal aortic aneurysm. Lymph nodes: Unremarkable. No enlarged lymph nodes. IMPRESSION: Bibasilar infiltrates consistent with pneumonia. Constipation Electronically signed by: Esvin Duran MD 01/11/23 23:37 PM Chest CTA 01/11/23 21:54 Exam(s): CTA CHEST IV Amt: 118 ml optiray 350 EXAM: CT Angiography Chest With Intravenous Contrast CLINICAL HISTORY: Reason for exam: PE. TECHNIQUE: Axial computed tomographic angiography images of the chest with intravenous contrast. CTDI is 9.58 mGy and DLP is 355.04 mGy-cm. Automated exposure control was utilized for the study. A dose lowering technique was utilized adhering to the principles of ALARA. MIP reconstructed images were created and reviewed. COMPARISON: No relevant prior studies available. FINDINGS: Pulmonary arteries: Unremarkable. No pulmonary embolism. Aorta: No acute findings. No thoracic aortic aneurysm. Lungs: Bilateral basilar infiltrates. Diffuse changes COPD. No mass. Pleural space: Unremarkable. No significant effusion. No pneumothorax. Heart: Unremarkable. No cardiomegaly. No significant pericardial effusion. No evidence of RV dysfunction. Bones/joints: No acute fracture. No dislocation. Soft tissues: Unremarkable. Lymph nodes: Unremarkable. No enlarged lymph nodes. Tubes, lines and devices: Endotracheal tube with its tip just above the debbie. Esophageal catheter is present with its tip in the gastric fundus. More confluent opacities within the right upper lobe right-sided central venous catheter with its tip at the cavoatrial junction. IMPRESSION: Bilateral interstitial infiltrates in the lung bases consistent with infectious or inflammatory process. Electronically signed by: Esvin Duran MD 01/11/23 23:41 PM I & O Totals 24 Hours 01/11/23 01/12/23 01/13/23 06:59 06:59 06:59 Intake Total 4447.679 / 4447.679 260.917 / 260.917 Output Total 701 / 701 Balance 3746.679 / 3746.679 260.917 / 260.917 Cumulative 01/11/23 19:45 thru 01/12/23 07:11 Intake Total 4708.596 Output Total 701 Balance 4007.596 RT Ventilator Mngmt (Last Documented) Ventilator Ordered Settings Ventilator Support Mode Assist Control 01/12/23 04:33 Respiratory Rate 30 01/12/23 06:30 Ventilator Tidal Volume 320 01/12/23 04:33 Setting Minute Ventilation 9.6 01/12/23 04:33 Positive End Expiratory 10 01/12/23 04:33 Pressure Fraction of Inspired Oxygen 60 01/12/23 04:33 Machine Comment settings increased after ABG per 01/11/23 23:15 [place] Ventilator - PT Measurements Respiratory Rate 30 Exhaled Tidal Volume 322 Minute Ventilation 9.6 Peak Inspiratory Airway 29 Pressure Plateau Pressure 25 Respiratory Cycle Inspiratory: 1:1.7 Expiratory Ratio Inspiratory Phase Time 1.0 End-Tidal CO2 0 Static Lung Compliance 21.47 Dynamic Lung Compliance 16.95 Normal Static Lung Compliance 45.00 Coding Level of Care Code 20444 CRITICAL CARE EA ADD 30M Diagnoses Acute and chronic respiratory failure J96.20 COPD (chronic obstructive pulmonary disease) J44.9 Septic shock A41.9; R65.21 Hypoxia R09.02 Tachycardia R00.0 Pneumonia J18.9
[2023-01-12] MEDS ORDERED: VANCOMYCIN HCL 1,000 MG in SODIUM CHLORIDE 0.9% 250 ML IV ONE (08:40)
--- NOTE | 2023-01-12 08:49 | XRay Report ---
XR chest 1V portable CLINICAL HISTORY: inbutation TECHNIQUE: Single frontal radiograph of the chest was obtained. Comparison: Comparison is made to chest radiograph 01/11/2023 FINDINGS: Endotracheal tube is approximately 5 cm from the debbie. The cardiomediastinal silhouette is normal. The lungs are clear. Blunting of bilateral costophrenic angles noted. IMPRESSION: Blunting of the bilateral costophrenic angles may represent bilateral effusions. Satisfactory positio n of endotracheal tube. ACT 112: Negative or not required by law. Electronically signed by: Martín Moulton M.D. 01/12/2023 8:47 AM
--- NOTE | 2023-01-12 08:57 | XRay Report ---
XR chest 1V portable CLINICAL HISTORY: post line TECHNIQUE: Single frontal radiograph of the chest was obtained. Comparison: Comparison is made to chest radiograph 01/12/2020 FINDINGS: Endotracheal tube measures 3.1 cm in the debbie. Right IJ catheter terminates in the mid SVC. The car diomediastinal silhouette is normal. Lungs remain overinflated. Blunting of the bilateral costophreni c angles noted. IMPRESSION: Satisfactory appearance of endotracheal and enteric tubes. ACT 112: Negative or not required by law. Electronically signed by: Martín Moulton M.D. 01/12/2023 8:54 AM
[2023-01-12] MEDS ORDERED: methylPREDNISolone 60 MG in SYRINGE 0 ML IV SCH (09:00)
--- NOTE | 2023-01-12 09:56 | Pharmacy Report ---
Pharmacy PK ABX Note - Date of Service January 12, 2023 - Assessment and Plan Assessment 82 year old M receiving vancomycin, cefepime, and azithromycin for treatment of pulmonary infection. MRSA nasal (-), Blood cultures and BAL pending. SCr- 1.08mg/dL. Day #1 of antimicrobial therapy. Plan Vancomycin * Loading dose: 1000 mg (~25mg/kg) IV x 1 * Given small body habitus, unknown baseline SCr, and current vasopressor requirements will obtain a random level tomorrow AM to guide further dosing. Follow up bronch wash cultures. Pharmacy will continue to follow and will adjust dose/frequency as necessary. Thank you. Pharmacy has transitioned to AUC monitoring for vancomycin. AUC/GERBER is the preferred PK/PD target and is associated with decreased risk of nephrotoxicity compared to traditional trough targets.
[2023-01-12 10:10] LABS: Appearance Urine Turbid (Clear); Bilirubin Urine Negative (Negative); Blood Urine 2+ (Negative); Color Urine Yellow; Epithelial Cell Urine Auto >30 /lpf (0-5); Glucose Urine UA Negative (Negative); Ketones Urine Trace (Negative); Leukocyte Esterase Urine Negative (Negative); Nitrite Urine Negative (Negative); Protein Urine 2+ (Negative); RBC Urine Automated 0-4 /hpf (0-4); Specific Gravity Urine > 1.045 (1.000-1.030); Urobilinogen Urine Negative (Negative)
[2023-01-12] MEDS: CEFEPIME 2,000 MG in SYRINGE 0 ML IV SCH ×2 (10:36→21:29)
[2023-01-12] MEDS: PANTOprazole 40 MG in SYRINGE 0 ML IV SCH (10:37)
[2023-01-12 10:42] LABS: Bacteria Urine Automated 2+ (Negative); Mucus Urine Present (None Prsent)
--- NOTE | 2023-01-12 11:06 | XRay Report ---
XR chest 1V portable CLINICAL HISTORY: Resp failure TECHNIQUE: Single frontal radiograph of the chest was obtained. Comparison: Comparison is made to chest radiograph 01/11/2023 FINDINGS: Endotracheal tube is approximately 4 cm from the debbie. Enteric tube is in satisfactory position. Ri ght IJ catheter is stable. The cardiomediastinal silhouette is normal. The lungs are clear. Small paloma ateral pleural effusions are seen with associated lower lung airspace opacities, more prominent than in the prior exam. IMPRESSION: 1. Satisfactory lines and tubes. 2. Bilateral pleural effusions and trace underlying airspace opacities, increased from prior exam. ACT 112: Negative or not required by law. Electronically signed by: Martín Moulton M.D. 01/12/2023 11:04 AM
--- NOTE | 2023-01-12 11:56 | XCELERA ---
[id number] [id number]
[2023-01-12 12:10] LABS: Lymphocyte Body Fluid Man 4 %; Neutrophil Body Fluid Man 96 %
[2023-01-12] MEDS ORDERED: GLUCOSE 40% GEL 15 GM TUBE PO PRN (12:15)
[2023-01-12] MEDS ORDERED: CARBOHYDRATES FOR HYPOGLYCEMIA PO PRN (12:15)
[2023-01-12] MEDS ORDERED: DEXTROSE 50% 50 ML SYRINGE IV PRN (12:15)
[2023-01-12] MEDS ORDERED: GLUCOSE 10 TAB/TUBE PO PRN (12:15)
[2023-01-12] MEDS ORDERED: GLUCAGON FOR INJ 1 MG VIAL IM PRN (12:15)
--- NOTE | 2023-01-12 12:15 | Electrocardiogram Report ---
Test Reason : Blood Pressure : / mmHG Vent. Rate : 102 BPM Atrial Rate : 102 BPM P-R Int : 134 ms QRS Dur : 082 ms QT Int : 328 ms P-R-T Axes : 085 009 083 degrees QTc Int : 427 ms Sinus tachycardia Right atrial enlargement Borderline ECG No previous ECGs available Confirmed by Vinay Tamayo ([id number]) on 01/12/2023 12:14:48 PM Referred By: REFERRED SELF Confirmed By:Vinay Tamayo
[2023-01-12] MEDS: INSULIN ASPART PER UNIT CHARGE SC SCH ×2 (12:39→18:41)
[2023-01-12 13:12] LABS: iSTAT Art Bld Gas pCO2 Correct 41 mmHg (35-46); iSTAT Art Bld Gas pH Corrected 7.404 (7.35-7.45); iSTAT Arterial Blood Gas HCO3 26 meg/L (19-24); iSTAT Arterial Blood Gas pCO2 41 mmHg (35-46); iSTAT Arterial Blood Gas pH 7.41 (7.35-7.45); iSTAT Arterial Blood Gas pO2 94 mmHg (80-95); iSTAT Arterial Blood Gas pO2 C 96; iSTAT Carbon Dioxide 27 mmol/L (24-31); iSTAT FiO2 45 %; iSTAT Hematocrit 25 % (42-52); iSTAT Hemoglobin 8.5 g/dl (14.0-18.0); iSTAT Potassium 3.9 mmol/L (3.3-5.0); iSTAT Site Art Line; iSTAT Sodium 139 mmol/L (135-144)
[2023-01-12 13:46] LABS: Prealbumin < 3.0 mg/dl (20-40)
--- NOTE | 2023-01-12 17:02 | Hospitalist Progress Note ---
Date of Service January 12, 2023 Assessment & Plan (1) Respiratory failure: Plan: 82yo male with history of oxygen dependent COPD, recent hospitalization at [facility] for acute hypoxic respiratory failure secondary to PNA and COPD requiring intubation and MICU care. Patient presents this evening with acute hypoxic respiratory failure, failed BiPAP in the ER therefore intubated for acute hypoxic respiratory failure and admitted to the MICU. Presently with adequate oxygenation of 80% FiO2. CT of the chest with bibasilar infiltrates. Suspect aspiration event. No overt wheezing appreciated on exam at this time Neuro: Intubated and sedated. No focal deficits noted on exam Cardiovascular: Patient hypotensive after intubation requiring Levophed -Admit to MICU -Continue Levophed, goal MAP of 65 -Continue IVF - per history, patient has had very poor oral intake of late. Per MICU and ER providers - IJ and Femoral veins were highly compressible suggesting intravascular depletion/dehydration _patient continues to require intubation on 01/13. Pulmonary- possible aspiration event leading to patient's acute hypoxic event -Continue mechanical ventilation -DuoNebs -Albuterol -Solumedrol 60mg IV TID -Antibiotic coverage - Cefepime and Azithromycin GI - No acute issues -Protonix 40mg IV daily for GI prophylaxis while ventilated - No acute issues. -Lou in place -Monitor BUN and Cr Heme - Normochromic/normocytic anemia with Hgb=8.5, Hct=27.6. No obvious bleeding -Monitor ID - possible aspiration PNA -Follow cultures -Cefepime + Azithromycin Endocrine - no active issues. Given Hydrocortisone 100mg IV x 1 dose (2) Hypotension: (3) COPD (chronic obstructive pulmonary disease): Admission and Anticipated Discharge Date Admission Date: January 11, 2023 Subjective Patient is intubated. Review of Systems Review of Systems: Unobtainable due to endotracheal tube Physical Exam Physical Exam: General: frail, cachectic male, intubated and sedated Skin: warm, dry, intact, no rashes or lesions HEENT: NC/AT, PERRL, anicteric sclera, conjunctiva without injection, external ear normal to inspection and nontender, nares patent, moist mucus membranes, dentition intact, no oropharyngeal lesions, neck supple, trachea midline, no LAD, no thyromegaly, no JVD Heart: +S1/S2, regular, tachycardic, no m/r/g Lungs: equal air entry bilaterally, no rales/rhonchi/wheezes Abd: +BS, soft, ND, no masses/organomegaly/ascites Ext: warm, 2+ pulses in UE/LE bilaterally, no clubbing/cyanosis or edema Neuro: intubated sedated Results & Data Results & Data Vital Signs (Past 12 Hours) Vital Signs Temp Pulse Pulse Resp BP Pulse Ox O2 Del Method 01/12/23 16:00 37.6 C H 98 H 30 H 95 01/12/23 15:47 101 H 31 H 98 01/12/23 16:00 01/12/23 15:00 37.5 C 101 H 30 H 98 01/12/23 14:00 37.3 C 113 H 30 H 98 01/12/23 12:50 37.1 C 97 H 30 H 97 01/12/23 13:48 79/43 L 01/12/23 08:00 Mechanical Vent 01/12/23 13:03 105 H 21 97 Mechanical Vent 01/12/23 12:00 37.3 C 97 H 30 H 96 Mechanical Vent 01/12/23 11:00 37.2 C 103 H 30 H 100 01/12/23 10:00 37.3 C 106 H 30 H 96 01/12/23 08:00 119 H 01/12/23 12:00 01/12/23 11:16 105 H 30 H 100 01/12/23 10:12 105/66 01/12/23 10:40 109/67 01/12/23 09:00 37.5 C 115 H 30 H 01/12/23 08:00 37.8 C H 113 H 30 H 100 01/12/23 07:15 101/70 01/12/23 07:00 38.1 C H 120 H 26 H 100 Mechanical Vent 01/12/23 07:00 95/63 L 01/12/23 08:45 140/74 01/12/23 08:00 01/12/23 08:30 125/69 01/12/23 07:55 117 H 30 H 99 01/12/23 07:55 117 H 24 100 Mechanical Vent 01/12/23 08:10 89/54 L 01/12/23 06:30 38.0 C H 120 H 30 H 100 01/12/23 06:30 107/72 01/12/23 06:15 37.9 C H 120 H 3 L 99 01/12/23 06:15 105/69 01/12/23 06:00 37.8 C H 119 H 30 H 100 01/12/23 06:00 103/70 01/12/23 05:45 91/65 L 01/12/23 05:45 37.8 C H 117 H 11 L 99 01/12/23 05:30 37.7 C H 117 H 30 H 100 01/12/23 05:30 113/70 01/12/23 05:15 37.7 C H 116 H 26 H 100 01/12/23 05:15 121/71 FiO2 01/12/23 16:00 01/12/23 15:47 35 01/12/23 16:00 45 01/12/23 15:00 01/12/23 14:00 01/12/23 12:50 01/12/23 13:48 01/12/23 08:00 60 01/12/23 13:03 45 01/12/23 12:00 45 01/12/23 11:00 01/12/23 10:00 01/12/23 08:00 01/12/23 12:00 45 01/12/23 11:16 45 01/12/23 10:12 01/12/23 10:40 01/12/23 09:00 01/12/23 08:00 01/12/23 07:15 01/12/23 07:00 60 01/12/23 07:00 01/12/23 08:45 01/12/23 08:00 60 01/12/23 08:30 01/12/23 07:55 60 01/12/23 07:55 60 01/12/23 08:10 01/12/23 06:30 01/12/23 06:30 01/12/23 06:15 01/12/23 06:15 01/12/23 06:00 01/12/23 06:00 01/12/23 05:45 01/12/23 05:45 01/12/23 05:30 01/12/23 05:30 01/12/23 05:15 01/12/23 05:15 PG Care Time/CCT Total # of Minutes Spent Total Time Spent with Patient: Total time spent is greater than 50% in coordination of care (as documented) at patient's floor/unit and/or counseling patient: Coding Level of Care Code 68228 SUB INP/OBS CARE 2MIN Diagnoses Respiratory failure J96.01; J96.02 Chronicity: acute Respiratory failure complication: hypoxia and hypercapnia Hypotension I95.9 Hypotension type: unspecified hypotension type COPD (chronic obstructive pulmonary disease) J44.9 (1) Respiratory failure Chronicity: acute Respiratory failure complication: hypoxia and hypercapnia Qualified Code(s): J96.01 - Acute respiratory failure with hypoxia; J96.02 - Acute respiratory failure with hypercapnia (2) Hypotension Hypotension type: unspecified hypotension type Qualified Code(s): I95.9 - Hypotension, unspecified
[2023-01-12 20:18] LABS: BUN Creatinine Ratio 30.7 (10-20); Calcium 7.6 mg/dl (8.6-10.3); Creatinine Clr Calc Pharmacy 24.1 ml/min; Est GFR (African American) 56.1 ml/min; Est GFR (Non-African American) 48.4 ml/min; Potassium 3.7 mmol/L (3.5-5.1)
[2023-01-12] MEDS ORDERED: POTASSIUM CHLORIDE 20 MEQ/15 ML UDC PO STA (20:23)
[2023-01-13] MEDS: INSULIN ASPART PER UNIT CHARGE SC SCH ×4 (00:58→18:21)
[2023-01-13] MEDS: ALBUT/IPRATROP 3MG/0.5MG NEB 3 ML VIAL NEB SCH ×3 (01:36→14:23)
[2023-01-13] MEDS: fentaNYL citrate 2,500 MCG/250 ML BAG IV SCH (02:33)
[2023-01-13] MEDS: PLASMA-LYTE A 1,000 ML IV SCH ×2 (03:19→16:06)
[2023-01-13] MEDS: VASOPRESSIN 20 UNITS in 0.9 % SODIUM CHLORIDE 100 ML IV SCH (03:19)
[2023-01-13 04:41] LABS: iSTAT Art Bld Gas pCO2 Correct 35 mmHg (35-46); iSTAT Arterial Blood Gas HCO3 27 meg/L (19-24); iSTAT Arterial Blood Gas pCO2 35 mmHg (35-46); iSTAT Arterial Blood Gas pH 7.49 (7.35-7.45); iSTAT Arterial Blood Gas pO2 80 mmHg (80-95); iSTAT Arterial Blood Gas pO2 C 80; iSTAT Carbon Dioxide 28 mmol/L (24-31); iSTAT FiO2 35 %; iSTAT Hematocrit 23 % (42-52); iSTAT Hemoglobin 7.8 g/dl (14.0-18.0); iSTAT Potassium 3.7 mmol/L (3.3-5.0); iSTAT Site Art Line; iSTAT Sodium 139 mmol/L (135-144)
[2023-01-13 06:23] LABS: BUN Creatinine Ratio 30.9 (10-20); Calcium 7.6 mg/dl (8.6-10.3); Creatinine Clr Calc Pharmacy 22.1 ml/min; Est GFR (African American) 50.6 ml/min; Est GFR (Non-African American) 43.7 ml/min; Magnesium 2.4 mg/dl (1.7-2.4); Phosphorus 2.4 mg/dl (2.5-4.9); Potassium 3.8 mmol/L (3.5-5.1)
[2023-01-13 06:40] LABS: Basophils # (auto) 0.03 K/uL (0-0.2); Basophils % (auto) 0.1 %; Hematocrit (blood only) 22.8 % (42.0-52.0); Hemoglobin 7.6 g/dl (14.0-18.0); Immature Granulocytes # (auto) 0.24 K/uL (0.01-0.20); Immature Granulocytes % (auto) 1.1 %; Lymphocytes # (auto) 0.44 K/uL (1.2-3.4); Mean Corpuscular Hemoglobin 29.9 pg (25.0-34.0); Mean Corpuscular Hgb Conc 33.3 g/dL (32.0-36.0); Mean Corpuscular Volume 89.8 fL (80.0-100.0); Monocytes # (auto) 0.58 K/uL (0.11-0.59); Monocytes % (auto) 2.6 %; Neutrophils # (auto) 20.61 K/uL (1.40-6.50); Neutrophils % (auto) 94.2 %; Nucleated RBC # (auto) 0.05 K/uL (0-0.12); Nucleated RBC % (auto) 0.2 %; Platelet Count 215 K/uL (130-400); Polychromasia 1+; RDW Coefficient of Variation 14.5 % (11.5-14.5); RDW Standard Deviation 47.3 fL (36.4-46.3); Red Blood Count 2.54 M/uL (4.70-6.10)
[2023-01-13] MEDS: ICU Protocol for HYPERglycemia SCH ×4 (07:29→20:10)
[2023-01-13] MEDS: AZITHROMYCIN 250 MG in DEXTROSE 5% 250 ML IV SCH (07:40)
[2023-01-13] MEDS ORDERED: VANCOMYCIN HCL 500 MG in NSS 100mL IV ONE (08:00)
[2023-01-13] MEDS: HEPARIN SOD 5,000 UNIT/0.5 ML VIAL SQ SCH ×2 (08:07→20:10)
--- NOTE | 2023-01-13 09:55 | Critical Care Progress Note ---
Date of Service January 13, 2023 Assessment & Plan (1) Acute and chronic respiratory failure: (2) COPD (chronic obstructive pulmonary disease): (3) Septic shock: (4) Hypoxia: (5) Tachycardia: (6) Pneumonia: Plan Reason Critically Ill: 82-year-old male with past medical history significant for COPD (2 L nasal cannula at baseline) and recent hospitalization for respiratory failure secondary to pneumonia requiring intubation. Admitted to ICU following acute on chronic hypercapnic and hypoxic respiratory failure with failure of BiPAP requiring intubation. CT imaging with consolidations consistent with pneumonia and now with septic shock requiring vasopressor support. Neuro - Discontinue sedatives as patient is liberated from ventilator Cardiac - Severe sepsis with septic shock, resolved off vasoactive medication Respiratory - Acute on chronic hypoxemic and acute hypercarbic respiratory failure. Successfully liberated from the ventilator this afternoon, continue DuoNebs as needed. GI - Hold on tube feeding. Patient appears significantly malnourished. Check prealbumin. Nutritional consult RENAL/LYTES - Acute kidney injury: Adjust medications for creatinine clearance - Foleystrict I's and O's ENDO - Glycemic control per protocol. Check random cortisol HEME - Anemia: Unclear chronicity. No evidence of acute blood loss. Type and screen. ID - Day #3 cefepime/azithromycin. Patient is at risk for MRSA given recent hospitalization, antibiotics etc. continue vancomycin and given cavitary lesion, awaiting speciation from lavage sources LINES/IV ACCESS - CVL, A-line: Obtain peripheral access DVT PROPHYLAXIS - SCDs I have personally spent 45 minutes of critical care time in the direct management of this patient. This is a life/limb threatening event. This includes time spent evaluating patient, direct bedside care, chart review, placing orders, interpretation of diagnostic studies, discussion with consultants, patient, and family members, as well as other required patient management activities. This time is exclusive of all separately billable procedures, and teaching time and separate from and in addition to any other critical care service time. Patient is critically ill with multiorgan system dysfunction. Significant po ssibility of clinical decline and or . Admission and Anticipated Discharge Date Admission Date: January 11, 2023 Subjective No overnight events. Family reports patient has poor cognitive function after severe illness, after previous intubation it took a couple days for him to return to baseline mental status Review of Systems Review of Systems: Unobtainable due to endotracheal tube Physical Exam Physical Exam: General: Sedated. nontoxic. Skin: Warm, dry, Head: Atraumatic Ears, nose, mouth and throat: airway obscured by endotracheal tube Cardiovascular: Normal peripheral perfusion Respiratory: Ventilator settings reviewed Gastrointestinal: Non distended Musculoskeletal: No deformity Results & Data Results & Data Vital Signs (Past 12 Hours) Vital Signs Temp Pulse Pulse Resp BP Pulse Ox O2 Del Method 01/13/23 09:00 36.8 C 106 H 23 96 Mechanical Vent 01/13/23 08:00 36.9 C 108 H 19 99 01/13/23 08:28 Mechanical Vent 01/13/23 08:00 Mechanical Vent 01/13/23 08:00 01/13/23 08:18 96 H 01/13/23 06:40 100 H 22 100 01/13/23 07:30 37.0 C 111 H 19 99 01/13/23 07:00 37.0 C 109 H 19 97 01/13/23 06:48 96 H 22 98 Mechanical Vent 01/13/23 06:00 37.1 C 101 H 22 97 01/13/23 05:30 37.1 C 104 H 22 97 01/13/23 05:00 37.2 C 104 H 22 98 01/13/23 04:30 37.1 C 107 H 30 H 100 01/13/23 04:30 108 H 24 97 01/13/23 05:00 37.1 C 99 H 23 111/49 L 99 Mechanical Vent 01/13/23 04:00 37.2 C 108 H 30 H 97 01/13/23 03:00 37.2 C 108 H 30 H 97 01/13/23 02:00 37.2 C 112 H 30 H 95 01/13/23 04:00 01/13/23 01:36 92 H 30 H 97 Mechanical Vent 01/13/23 01:00 37.2 C 95 H 30 H 96 01/13/23 00:45 37.2 C 96 H 30 H 96 01/13/23 00:30 37.2 C 97 H 30 H 95 01/13/23 00:15 37.0 C 103 H 30 H 96 01/13/23 00:00 37.2 C 101 H 30 H 98 01/12/23 23:45 37.1 C 99 H 30 H 97 01/13/23 00:00 01/13/23 00:00 158/68 H 08/13/23 23:30 37.2 C 105 H 30 H 97 01/12/23 23:15 37.2 C 104 H 30 H 95 01/12/23 23:00 37.3 C 106 H 30 H 94 01/12/23 22:45 37.3 C 105 H 30 H 92 01/12/23 22:30 37.3 C 106 H 30 H 98 01/12/23 22:15 37.3 C 107 H 30 H 90 01/12/23 23:31 90 30 H 97 01/12/23 22:00 37.3 C 103 H 26 H 91 FiO2 01/13/23 09:00 01/13/23 08:00 01/13/23 08:28 35 01/13/23 08:00 35 01/13/23 08:00 35 01/13/23 08:18 01/13/23 06:40 35 01/13/23 07:30 01/13/23 07:00 01/13/23 06:48 35 01/13/23 06:00 01/13/23 05:30 01/13/23 05:00 01/13/23 04:30 01/13/23 04:30 35 01/13/23 05:00 01/13/23 04:00 01/13/23 03:00 01/13/23 02:00 01/13/23 04:00 45 01/13/23 01:36 35 01/13/23 01:00 01/13/23 00:45 01/13/23 00:30 01/13/23 00:15 01/13/23 00:00 01/12/23 23:45 01/13/23 00:00 45 01/13/23 00:00 01/12/23 23:30 01/12/23 23:15 01/12/23 23:00 01/12/23 22:45 01/12/23 22:30 01/12/23 22:15 01/12/23 23:31 35 01/12/23 22:00 Critical Care Results & Data Vital Signs (Past 12 Hours) Vital Signs Temp Pulse Pulse Resp BP Pulse Ox O2 Del Method 01/13/23 13:00 36.1 C L 84 12 98 01/13/23 12:00 36.3 C L 96 H 11 L 99 01/13/23 11:36 98 Oxymask 01/13/23 11:20 36.4 C L 107 H 19 97 01/13/23 11:00 36.4 C L 105 H 31 H 100 01/13/23 10:58 101 H 10 L 99 01/13/23 10:00 92 H 9 L 145/57 H 98 Mechanical Vent 01/13/23 09:00 36.8 C 106 H 23 96 Mechanical Vent 01/13/23 08:00 36.9 C 108 H 19 99 01/13/23 08:28 Mechanical Vent 01/13/23 08:00 Mechanical Vent 01/13/23 08:00 01/13/23 08:18 96 H 01/13/23 06:40 100 H 22 100 01/13/23 07:30 37.0 C 111 H 19 99 01/13/23 07:00 37.0 C 109 H 19 97 01/13/23 06:48 96 H 22 98 Mechanical Vent 01/13/23 06:00 37.1 C 101 H 22 97 01/13/23 05:30 37.1 C 104 H 22 97 01/13/23 05:00 37.2 C 104 H 22 98 01/13/23 04:30 37.1 C 107 H 30 H 100 01/13/23 04:30 108 H 24 97 01/13/23 05:00 37.1 C 99 H 23 111/49 L 99 Mechanical Vent 01/13/23 04:00 37.2 C 108 H 30 H 97 01/13/23 03:00 37.2 C 108 H 30 H 97 01/13/23 04:00 O2 Flow Rate FiO2 01/13/23 13:00 01/13/23 12:00 01/13/23 11:36 4 01/13/23 11:20 01/13/23 11:00 01/13/23 10:58 35 01/13/23 10:00 35 01/13/23 09:00 01/13/23 08:00 01/13/23 08:28 35 01/13/23 08:00 35 01/13/23 08:00 35 01/13/23 08:18 01/13/23 06:40 35 01/13/23 07:30 01/13/23 07:00 01/13/23 06:48 35 01/13/23 06:00 01/13/23 05:30 01/13/23 05:00 01/13/23 04:30 01/13/23 04:30 35 01/13/23 05:00 01/13/23 04:00 01/13/23 03:00 01/13/23 04:00 45 Lab & Micro Results (Past 24 Hours) RBC 2.54 M/uL (4.70-6.10) L 01/13/23 WBC 21.90 K/ul (4.8-10.8) H 01/13/23 Hgb 7.6 g/dl (14.0-18.0) L 01/13/23 Hct 22.8 % (42.0-52.0) L 01/13/23 MCV 89.8 fL (80.0-100.0) 01/13/23 MCH 29.9 pg (25.0-34.0) 01/13/23 MCHC 33.3 g/dL (32.0-36.0) 01/13/23 RDW Standard Deviation 47.3 fL (36.4-46.3) H 01/13/23 RDW Coefficient of Variation 14.5 % (11.5-14.5) 01/13/23 Plt Count 215 K/uL (130-400) 01/13/23 MPV 11.0 fL (9.4-12.4) 01/13/23 Nucleated Red Blood Cells % (auto) 0.2 % 01/13 Nucleated RBC Absolute Count (auto) 0.05 K/uL (0-0.12) 12/31 09/22 Neutrophils (%) (Auto) 94.2 % 01/13/23 Lymphocytes (%) (Auto) 2.0 % 01/13/23 Monocytes # (Auto) 0.58 K/uL (0.11-0.59) 01/13/23 Eosinophils # (Auto) 0.00 K/uL (0-0.50) 01/13/23 Immature Granulocyte % (Auto) 1.1 % 01/13/23 Neutrophils # (Auto) 20.61 K/uL (1.40-6.50) H 01/13/23 Lymphocytes # (Auto) 0.44 K/uL (1.2-3.4) L 01/13/23 Monocytes # (Auto) 0.58 K/uL (0.11-0.59) 01/13/23 Eosinophils # (Auto) 0.00 K/uL (0-0.50) 01/13/23 Basophils # (Auto) 0.03 K/uL (0-0.2) 01/13/23 Immature Granulocyte # (Auto) 0.24 K/uL (0.01-0.20) H 01/13 Polychromasia 1+ 01/13/23 Na 142 mmol/L (136-145) 01/13/23 K 3.8 mmol/L (3.5-5.1) 01/13/23 Cl 105 mmol/L (98-107) 01/13/23 CO2 28 mmol/L (21-32) 01/13/23 Anion Gap 9 (3-11) 01/13/23 BUN 46 mg/dl (6-23) H 01/13/23 Creatinine 1.49 mg/dl (0.6-1.4) H 01/13/23 Estimated GFR ( Amer) 50.6 ml/min 01/13/23 Estimated GFR (Non-Af Amer) 43.7 ml/min 01/13/23 BUN/Creatinine Ratio 30.9 (10-20) H 01/13/23 Glu 124 mg/dl (70-99(Fasting)) H 01/13/23 Ca 7.6 mg/dl (8.6-10.3) L 01/13/23 Phosphorus Level 2.4 mg/dl (2.5-4.9) L 01/13/23 Mg 2.4 mg/dl (1.7-2.4) 01/13/23 05:44 Calcium Level 7.6 mg/dl (8.6-10.3) L 01/13/23 05:44 Genaro Test NA 01/13/23 04:26 Microbiology 01/12/23 07:55 Gram Stain - Final Bronch Wash,Left Lower Lobe Bronchial Culture - Preliminary Light normal milan present, final report to follow. 01/12/23 07:55 Gram Stain - Final Ba Lavage,Right Upper Lobe Bronchial Culture - Preliminary Gram negative bacilli 01/12/23 08:30 Urine Culture - Preliminary Urine,Indwelling Cath No growth - Less than 1,000 colonies/mL, Final report to follow. 01/12/23 07:55 Acid Fast Bacilli Smear - Final Bronch Wash,Left Lower Lobe 01/12/23 07:55 Acid Fast Bacilli Smear - Final Ba Lavage,Right Upper Lobe 01/11/23 21:27 Aerobic Blood Culture - Preliminary Blood No growth in Aerobic bottle after 24 hours. Anaerobic Blood Culture - Preliminary No growth in Anaerobic bottle after 24 hours. 01/11/23 21:27 Aerobic Blood Culture - Preliminary Blood No growth in Aerobic bottle after 24 hours. Anaerobic Blood Culture - Preliminary No growth in Anaerobic bottle after 24 hours. I & O Totals 24 Hours 01/12/23 01/13/23 01/14/23 06:59 06:59 06:59 Intake Total 4447.679 / 4447.679 3289.571 / 3289.571 400.709 / 400.709 Output Total 701 / 701 425 / 425 90 / 90 Balance 3746.679 / 3746.679 2864.571 / 2864.571 310.709 / 310.709 Cumulative 01/11/23 19:45 thru 01/13/23 12:00 Intake Total 8137.959 Output Total 1216 Balance 6921.959 RT Ventilator Mngmt (Last Documented) Ventilator Ordered Settings Ventilator Support Mode CPAP 01/13/23 10:58 Respiratory Rate 12 01/13/23 13:00 Ventilator Tidal Volume 320 01/13/23 08:00 Setting Minute Ventilation 8 01/13/23 10:58 Ventilator Positive Pressure 10 01/13/23 10:58 Support Setting Positive End Expiratory 5 01/13/23 10:58 Pressure Fraction of Inspired Oxygen 35 01/13/23 10:58 Machine Comment settings changed after ABG per 01/13/23 04[facility]30 [facility] Respiratory Rate 12 Exhaled Tidal Volume 450 Minute Ventilation 8 Peak Inspiratory Airway 19 Pressure Plateau Pressure 14 Respiratory Cycle Inspiratory: 1:1.7 Expiratory Ratio Inspiratory Phase Time 1.0 End-Tidal CO2 35 Static Lung Compliance 35.44 Dynamic Lung Compliance 22.79 Normal Static Lung Compliance 46.00 Patient Measurements Comment Patient found on SBT by Dr. Cooper sats 98%. Patient extubated per Dr. Cooper to 4L Oxymask sats 98-100%, RR 10-12, HR 103. Patient appears sleepy post extubation, vent in room on standby at this time with bipap mask if needed. and RN aware. Coding Level of Care Code 84082 CRITICAL CARE 1ST 30-74M Diagnoses Acute and chronic respiratory failure J96.20 COPD (chronic obstructive pulmonary disease) J44.9 Septic shock A41.9; R65.21 Hypoxia R09.02 Tachycardia R00.0 Pneumonia J18.9
[2023-01-13] MEDS: PANTOprazole 40 MG in SYRINGE 0 ML IV SCH (10:03)
[2023-01-13] MEDS: CEFEPIME 2,000 MG in SYRINGE 0 ML IV SCH (10:03)
--- NOTE | 2023-01-13 10:21 | Pharmacy Report ---
Pharmacy PK ABX Note - Date of Service January 13, 2023 - Assessment and Plan Assessment 01/13: SCr trending upward 1.05 --> 1.49 this morning. Random level 9.6 this morning. Will continue dosing with levels d/t small body habitus, increasing SCr. BAL pending. Blood cultures negative at 24 hours. Urine culture pending. Cefepime adjusted for renal function. WBC increased this morning. 01/12: 82 year old M receiving vancomycin, cefepime, and azithromycin for treatment of pulmonary infection. MRSA nasal (-), Blood cultures and BAL pending. SCr- 1.08mg/dL. Day #1 of antimicrobial therapy. Plan 01/13: * Redose with 500 mg vancomycin x 1 today. * Random level to be obtained tomorrow morning, [facility] suggests q18-24 hour dosing to reach target AUC * Monitor renal function changes, cultures 01/12: Vancomycin * Loading dose: 1000 mg (~25mg/kg) IV x 1 * Given small body habitus, unknown baseline SCr, and current vasopressor requirements will obtain a random level tomorrow AM to guide further dosing. Follow up bronch wash cultures. Pharmacy will continue to follow and will adjust dose/frequency as necessary. Thank you. Pharmacy has transitioned to AUC monitoring for vancomycin. AUC/GERBER is the preferred PK/PD target and is associated with decreased risk of nephrotoxicity compared to traditional trough targets.
[2023-01-13] MEDS ORDERED: POTASSIUM PHOSPHATE 18 MMOL in SODIUM CHLORIDE 0.9% 500 ML IV ONE (11:00)
[2023-01-13] MEDS ORDERED: ALBUT/IPRATROP 3MG/0.5MG NEB 3 ML VIAL NEB PRN (14:01)
--- NOTE | 2023-01-13 21:57 | Hospitalist Progress Note ---
Date of Service January 13, 2023 Assessment & Plan (1) Respiratory failure: Plan: 82yo male with history of oxygen dependent COPD, recent hospitalization at [facility] for acute hypoxic respiratory failure secondary to PNA and COPD requiring intubation and MICU care. Patient presents this evening with acute hypoxic respiratory failure, failed BiPAP in the ER therefore intubated for acute hypoxic respiratory failure and admitted to the MICU. Presently with adequate oxygenation of 80% FiO2. CT of the chest with bibasilar infiltrates. Suspect aspiration event. No overt wheezing appreciated on exam at this time Neuro: Intubated . No focal deficits noted on exam Cardiovascular: Patient hypotensive after intubation requiring Levophed -Admit to MICU -Continue Levophed, goal MAP of 65 -Continue IVF - per history, patient has had very poor oral intake of late. Per MICU and ER providers - IJ and Femoral veins were highly compressible suggesting intravascular depletion/dehydration _patient continues to require intubation on 01/13. Pulmonary- possible aspiration event leading to patient's acute hypoxic event -Continue mechanical ventilation -DuoNebs -Albuterol -Solumedrol 60mg IV TID -Antibiotic coverage - Cefepime and Azithromycin -Trial to extubate later today GI - No acute issues -Protonix 40mg IV daily for GI prophylaxis while ventilated - No acute issues. -Lou in place -Monitor BUN and Cr Heme - Normochromic/normocytic anemia with Hgb=8.5, Hct=27.6. No obvious bleeding -Monitor ID - possible aspiration PNA -Follow cultures -Cefepime + Azithromycin Endocrine - no active issues. Given Hydrocortisone 100mg IV x 1 dose Conntinue current medications. (2) Hypotension: (3) COPD (chronic obstructive pulmonary disease): Admission and Anticipated Discharge Date Admission Date: January 11, 2023 Subjective Patient intubated Review of Systems Review of Systems: Unobtainable due to endotracheal tube Physical Exam Physical Exam: General: frail, cachectic male, intubated Skin: warm, dry, intact, no rashes or lesions HEENT: NC/AT, PERRL, anicteric sclera, conjunctiva without injection, external ear normal to inspection and nontender, nares patent, moist mucus membranes, dentition intact, no oropharyngeal lesions, neck supple, trachea midline, no LAD, no thyromegaly, no JVD Heart: +S1/S2, regular, tachycardic, no m/r/g Lungs: equal air entry bilaterally, no rales/rhonchi/wheezes Abd: +BS, soft, ND, no masses/organomegaly/ascites Ext: warm, 2+ pulses in UE/LE bilaterally, no clubbing/cyanosis or edema Neuro: intubated Results & Data Results & Data Vital Signs (Past 12 Hours) Vital Signs Temp Pulse Resp BP Pulse Ox O2 Del Method O2 Flow Rate 01/13/23 21:00 36.4 C L 101 H 28 H 100 01/13/23 20:30 36.3 C L 01/13/23 20:00 36.2 C L 99 H 28 H 97 01/13/23 19:30 36.2 C L 100 H 26 H 99 01/13/23 19:00 36.1 C L 97 H 17 98 01/13/23 20:00 Oxymask 3 01/13/23 18:00 36.0 C L 102 H 31 H 99 01/13/23 17:00 36.1 C L 107 H 23 97 01/13/23 15:00 102 H 01/13/23 16:00 36.0 C L 106 H 24 92 Oxymask 4 01/13/23 15:00 36.0 C L 101 H 15 94 01/13/23 14:00 36.1 C L 101 H 34 H 95 01/13/23 13:00 36.1 C L 84 12 98 01/13/23 12:00 36.3 C L 96 H 11 L 99 01/13/23 11:36 98 Oxymask 4 01/13/23 11:20 36.4 C L 107 H 19 97 01/13/23 11:00 36.4 C L 105 H 31 H 100 01/13/23 10:58 101 H 10 L 99 01/13/23 10:00 92 H 9 L 145/57 H 98 Mechanical Vent FiO2 01/13/23 21:00 01/13/23 20:30 01/13/23 20:00 01/13/23 19:30 01/13/23 19:00 01/13/23 20:00 01/13/23 18:00 01/13/23 17:00 01/13/23 15:00 01/13/23 16:00 01/13/23 15:00 01/13/23 14:00 01/13/23 13:00 01/13/23 12:00 01/13/23 11:36 01/13/23 11:20 01/13/23 11:00 01/13/23 10:58 35 01/13/23 10:00 35 PG Care Time/CCT Total # of Minutes Spent Total Time Spent with Patient: Total time spent is greater than 50% in coordination of care (as documented) at patient's floor/unit and/or counseling patient: Coding Level of Care Code 97736 SUB INP/OBS CARE 2/35MIN Diagnoses Respiratory failure J96.01; J96.02 Chronicity: acute Respiratory failure complication: hypoxia and hypercapnia Hypotension I95.9 Hypotension type: unspecified hypotension type COPD (chronic obstructive pulmonary disease) J44.9 (1) Respiratory failure Chronicity: acute Respiratory failure complication: hypoxia and hypercapnia Qualified Code(s): J96.01 - Acute respiratory failure with hypoxia; J96.02 - Acute respiratory failure with hypercapnia (2) Hypotension Hypotension type: unspecified hypotension type Qualified Code(s): I95.9 - Hypotension, unspecified
[2023-01-13] MEDS: CEFEPIME 1,000 MG in SYRINGE 0 ML IV SCH (22:15)
[2023-01-14] MEDS: INSULIN ASPART PER UNIT CHARGE SC SCH ×5 (00:16→23:59)
[2023-01-14 06:21] LABS: Calcium 7.7 mg/dl (8.6-10.3); Creatinine Clr Calc Pharmacy 19.8 ml/min; Est GFR (African American) 43.5 ml/min; Est GFR (Non-African American) 37.5 ml/min; Magnesium 2.6 mg/dl (1.7-2.4); Phosphorus 4.6 mg/dl (2.5-4.9); Potassium 4.1 mmol/L (3.5-5.1)
[2023-01-14 06:27] LABS: White Blood Count 35.82 K/ul (4.8-10.8)
[2023-01-14 06:29] LABS: Hemoglobin 8.2 g/dl (14.0-18.0); Mean Corpuscular Hemoglobin 29.9 pg (25.0-34.0); Mean Corpuscular Hgb Conc 31.5 g/dL (32.0-36.0); Mean Corpuscular Volume 94.9 fL (80.0-100.0); Mean Platelet Volume 10.5 fL (9.4-12.4); Nucleated RBC # (auto) 0.06 K/uL (0-0.12); Nucleated RBC % (auto) 0.2 %; Platelet Count 243 K/uL (130-400); RDW Coefficient of Variation 15.1 % (11.5-14.5); RDW Standard Deviation 51.9 fL (36.4-46.3); Red Blood Count 2.74 M/uL (4.70-6.10)
[2023-01-14 06:31] LABS: Basophils # (auto) 0.08 K/uL (0-0.2); Basophils % (auto) 0.2 %; Immature Granulocytes # (auto) 1.58 K/uL (0.01-0.20); Immature Granulocytes % (auto) 4.4 %; Lymphocytes # (auto) 0.48 K/uL (1.2-3.4); Lymphocytes % (auto) 1.3 %; Monocytes # (auto) 1.17 K/uL (0.11-0.59); Monocytes % (auto) 3.3 %; Neutrophils # (auto) 32.51 K/uL (1.40-6.50); Neutrophils % (auto) 90.8 %; Polychromasia 1+
[2023-01-14] MEDS: PLASMA-LYTE A 1,000 ML IV SCH ×2 (06:47→22:25)
[2023-01-14] MEDS ORDERED: VANCOMYCIN HCL 750 MG in SODIUM CHLORIDE 0.9% 250 ML IV ONE (07:15)
--- NOTE | 2023-01-14 07:43 | Critical Care Progress Note ---
Date of Service January 14, 2023 Assessment & Plan (1) Acute and chronic respiratory failure: (2) COPD (chronic obstructive pulmonary disease): (3) Septic shock: (4) Hypoxia: (5) Tachycardia: (6) Pneumonia: Plan Reason Critically Ill: 82-year-old male with past medical history significant for COPD (2 L nasal cannula at baseline) and recent hospitalization for respiratory failure secondary to pneumonia requiring intubation. Admitted to ICU following acute on chronic hypercapnic and hypoxic respiratory failure with failure of BiPAP requiring intubation. CT imaging with consolidations consistent with pneumonia and now with septic shock requiring vasopressor support. Neuro - Delirium: -Attempting to get EKG however patient is rather combative when attempting to get he EKG -Zyprexa ODT 5mg Cardiac - Severe sepsis with septic shock, resolved off vasoactive medication Respiratory - Acute on chronic hypoxemic and acute hypercarbic respiratory failure. Successfully liberated from the ventilator this afternoon, continue DuoNebs as needed. GI - Hold on tube feeding. Patient appears significantly malnourished. Check prealbumin. Nutritional consult -Discussed with family goals of care and possible feeding tube placement. We will consult palliative care to better stratify goals. RENAL/LYTES - Acute kidney injury: Adjust medications for creatinine clearance - Foleystrict I's and O's ENDO - Glycemic control per protocol. Check random cortisol HEME - Anemia: Unclear chronicity. No evidence of acute blood loss. Type and screen. ID - Day #4 discontinue cefepime/azithromycin. Patient has multiple risk factors however it is a pansensitive Klebsiella on direct testing. He is at risk for recurrent aspiration we will de-escalate to Unasyn. LINES/IV ACCESS - CVL, A-line: Obtain peripheral access, discontinue A-line DVT PROPHYLAXIS - SCDs Had extensive discussion with 2 daughters at bedside and further clarified CODE STATUS. Patient will be DNR/DNI in event of cardiac arrest and DNI in event of respiratory insufficiency. We discussed we would proceed with additional treatments to hopefully stave off intubation however should the patient require intubation for severe hypoxic or hypercapnic respiratory failure we would trans ition to comfort measures. The overarching goal is to make sure the patient did not experience discomfort through a dying process. Additionally there were goals that if the patient is able to be discharged he would be discharged to his daughter's residence where they have already made some arrangements for therapy. Previously when the patient was discharged to [facility] he felt the therapy regimen was too aggressive. Family members should be available after 1130 tomorrow for further discussion with the palliative care team if available. I have personally spent 45 minutes of critical care time in the direct management of this patient. This is a life/limb threatening event. This includes time spent evaluating patient, direct bedside care, chart review, placing orders, interpretation of diagnostic studies, discussion with consultants, patient, and family members, as well as other required patient management activities. This time is exclusive of all separately billable procedures, and teaching time and separate from and in addition to any other critical care service time. Patient is critically ill with multiorgan system dysfunction. Significant possibility of clinical decline and or . Admission and Anticipated Discharge Date Admission Date: January 11, 2023 Subjective Patient delirious Physical Exam Physical Exam: General: Alert. nontoxic. Delirious, cachectic in appearance Skin: Warm, dry, Head: Atraumatic Ears, nose, mouth and throat: airway patent Cardiovascular: Normal peripheral perfusion Respiratory: no respiratory distress Gastrointestinal: Non distended Musculoskeletal: No deformity, soft wrist restraints as he continues to pull at medical equipment Results & Data Results & Data Vital Signs (Past 12 Hours) Vital Signs Temp Pulse Resp BP Pulse Ox O2 Del Method O2 Flow Rate 01/14/23 06:00 36.4 C L 98 H 36 H 01/14/23 05:00 36.3 C L 87 28 H 01/14/23 04:00 36.3 C L 93 H 32 H 99 01/14/23 03:30 36.3 C L 90 26 H 99 01/14/23 03:00 36.3 C L 87 13 99 01/14/23 02:30 36.3 C L 100 H 28 H 98 01/14/23 02:00 36.3 C L 91 H 30 H 99 01/14/23 01:30 36.2 C L 97 H 26 H 01/14/23 01:00 36.1 C L 85 12 100 01/14/23 00:30 36.3 C L 86 16 100 01/14/23 00:00 36.2 C L 96 H 30 H 100 01/13/23 23:30 36.4 C L 106 H 27 H 85 L 01/13/23 23:00 36.4 C L 94 H 27 H 100 01/13/23 22:30 36.4 C L 97 H 28 H 100 01/13/23 22:00 36.3 C L 100 H 28 H 100 01/13/23 21:30 36.4 C L 103 H 28 H 97 01/13/23 22:00 36.3 C L 102 H 22 143/76 H 100 Oxymask 3 01/13/23 21:00 36.4 C L 101 H 28 H 100 01/13/23 20:30 36.3 C L 01/13/23 20:00 36.2 C L 99 H 28 H 97 01/13/23 20:00 Oxymask 3 Critical Care Results & Data Vital Signs (Past 12 Hours) Vital Signs Temp Pulse Resp BP Pulse Ox O2 Del Method O2 Flow Rate 01/14/23 15:00 36.7 C 103 H 28 H 148/75 H 92 Nasal Cannula 2 01/14/23 14:00 36.6 C 101 H 24 141/79 H 99 Nasal Cannula 4 01/14/23 13:00 36.3 C L 107 H 18 141/79 H 100 Nasal Cannula 5 01/14/23 11:50 36.7 C 106 H 30 H 159/74 H 93 Oxymask 4 01/14/23 10:39 36.2 C L 97 H 32 H 140/75 95 Oxymask 4 01/14/23 10:10 35.8 C L 100 H 31 H 150/65 H 100 Oxymask 4 01/14/23 09:00 36.4 C L 102 H 28 H 97 Oxymask 4 01/14/23 08:00 36.4 C L 103 H 26 H 98 Oxymask 5 01/14/23 07:30 36.4 C L 101 H 23 99 Oxymask 5 01/14/23 07:00 36.4 C L 102 H 24 99 Oxymask 5 01/14/23 07:00 Oxymask 5 01/14/23 06:00 36.4 C L 98 H 36 H 01/14/23 05:00 36.3 C L 87 28 H 01/14/23 04:00 36.3 C L 93 H 32 H 99 Lab & Micro Results (Past 24 Hours) RBC 2.74 M/uL (4.70-6.10) L 01/14/23 WBC 35.82 K/ul (4.8-10.8) H* 01/14/23 Hgb 8.2 g/dl (14.0-18.0) L 01/14/23 Hct 26.0 % (42.0-52.0) L 01/14/23 MCV 94.9 fL (80.0-100.0) 01/14/23 MCH 29.9 pg (25.0-34.0) 01/14/23 MCHC 31.5 g/dL (32.0-36.0) L 01/14/23 RDW Standard Deviation 51.9 fL (36.4-46.3) H 01/14/23 RDW Coefficient of Variation 15.1 % (11.5-14.5) H 01/14/23 Plt Count 243 K/uL (130-400) 01/14/23 MPV 10.5 fL (9.4-12.4) 01/14/23 Nucleated Red Blood Cells % (auto) 0.2 % 01/14 Nucleated RBC Absolute Count (auto) 0.06 K/uL (0-0.12) 12/31 10/22 Neutrophils (%) (Auto) 90.8 % 01/14/23 Lymphocytes (%) (Auto) 1.3 % 01/14/23 Monocytes # (Auto) 1.17 K/uL (0.11-0.59) H 01/14/23 Eosinophils # (Auto) 0.00 K/uL (0-0.50) 01/14/23 Immature Granulocyte % (Auto) 4.4 % 01/14/23 Neutrophils # (Auto) 32.51 K/uL (1.40-6.50) H 01/14/23 Lymphocytes # (Auto) 0.48 K/uL (1.2-3.4) L 01/14/23 Monocytes # (Auto) 1.17 K/uL (0.11-0.59) H 01/14/23 Eosinophils # (Auto) 0.00 K/uL (0-0.50) 01/14/23 Basophils # (Auto) 0.08 K/uL (0-0.2) 01/14/23 Immature Granulocyte # (Auto) 1.58 K/uL (0.01-0.20) H 01/14 Polychromasia 1+ 01/14/23 Na 145 mmol/L (136-145) 01/14/23 K 4.1 mmol/L (3.5-5.1) 01/14/23 Cl 107 mmol/L (98-107) 01/14/23 CO2 27 mmol/L (21-32) 01/14/23 Anion Gap 11 (3-11) 01/14/23 BUN 49 mg/dl (6-23) H 01/14/23 Creatinine 1.69 mg/dl (0.6-1.4) H 01/14/23 Estimated GFR ( Amer) 43.5 ml/min 01/14/23 Estimated GFR (Non-Af Amer) 37.5 ml/min 01/14/23 BUN/Creatinine Ratio 29.0 (10-20) H 01/14/23 Glu 85 mg/dl (70-99(Fasting)) 01/14/23 Ca 7.7 mg/dl (8.6-10.3) L 01/14/23 Phosphorus Level 4.6 mg/dl (2.5-4.9) 01/14/23 Mg 2.6 mg/dl (1.7-2.4) H 01/14/23 05:25 Calcium Level 7.7 mg/dl (8.6-10.3) L 01/14/23 05:25 Genaro Test NA 01/14/23 08:08 Microbiology 01/12/23 08:30 Urine Culture - Final Urine,Indwelling Cath No growth - less than 1,000 colonies/mL. 01/12/23 07:55 Gram Stain - Final Bronch Wash,Left Lower Lobe Bronchial Culture - Final Moderate normal milan. 01/12/23 07:55 Gram Stain - Final Ba Lavage,Right Upper Lobe Bronchial Culture - Final Klebsiella pneumoniae 01/11/23 21:27 Aerobic Blood Culture - Preliminary Blood No growth in Aerobic bottle after 48 hours. Anaerobic Blood Culture - Preliminary No growth in Anaerobic bottle after 48 hours. 01/11/23 21:27 Aerobic Blood Culture - Preliminary Blood No growth in Aerobic bottle after 48 hours. Anaerobic Blood Culture - Preliminary No growth in Anaerobic bottle after 48 hours. Diagnostic Findings (Past 24 Hours) Chest X-Ray 01/14/23 10:16 XR chest 1V portable HISTORY: COPD. Respiratory distress. COMPARISON: Chest 01/12/2023. FINDINGS: Endotracheal tube is been removed. Right jugular central venous catheter terminates at the SVC. Small bilateral pleural effusions and patchy bibasilar densities persist. Chronic consolidation/scarring within the right lung apex/right upper lobe remains unchanged. There is a questionable tiny right apical pneumothorax. IMPRESSION: 1. Questionable tiny right apical pneumothorax. Follow-up recommended to ensure stability/resolution. 2. Small bilateral pleural effusions and patchy bibasilar densities persist. 3. This report was called/faxed to the referring physician following dictation. ACT 112: Negative or not required by law. Electronically signed by: Temo Horne M.D. 01/14/2023 10:37 AM I & O Totals 24 Hours 01/13/23 01/14/23 01/15/23 06:59 06:59 06:59 Intake Total 3289.571 / 3289.571 2906.709 / 2906.709 625.5 / 625.5 Output Total 425 / 425 765 / 765 460 / 460 Balance 2864.571 / 2864.571 2141.709 / 2141.709 165.5 / 165.5 Cumulative 01/11/23 19:45 thru 01/14/23 14:59 Intake Total 13764.459 Output Total 2351 Balance 8918.459 RT Ventilator Mngmt (Last Documented) Ventilator Ordered Settings Ventilator Support Mode CPAP 01/13/23 10:58 Respiratory Rate 28 01/14/23 15:00 Ventilator Tidal Volume 320 01/13/23 08:00 Setting Minute Ventilation 8 01/13/23 10:58 Ventilator Positive Pressure 10 01/13/23 10:58 Support Setting Positive End Expiratory 5 01/13/23 10:58 Pressure Fraction of Inspired Oxygen 35 01/13/23 10:58 Machine Comment settings changed after ABG per 01/13/23 04:[facility] Measurements Respiratory Rate 28 Exhaled Tidal Volume 450 Minute Ventilation 8 Peak Inspiratory Airway 19 Pressure Plateau Pressure 14 Respiratory Cycle Inspiratory: 1:1.7 Expiratory Ratio Inspiratory Phase Time 1.0 End-Tidal CO2 35 Static Lung Compliance 35.44 Dynamic Lung Compliance 22.79 Normal Static Lung Compliance 46.00 Patient Measurements Comment Patient found on SBT by Dr. Cooper sats 98%. Patient extubated per Dr. Cooper to 4L Oxymask sats 98-100%, RR 10-12, HR 103. Patient appears sleepy post extubation, vent in room on standby at this time with bipap mask if needed. and RN aware. Coding Level of Care Code 58369 CRITICAL CARE 1ST 30-74M Diagnoses Acute and chronic respiratory failure J96.20 COPD (chronic obstructive pulmonary disease) J44.9 Septic shock A41.9; R65.21 Hypoxia R09.02 Tachycardia R00.0 Pneumonia J18.9
[2023-01-14] MEDS: AZITHROMYCIN 250 MG in DEXTROSE 5% 250 ML IV SCH (07:44)
[2023-01-14 08:21] LABS: iSTAT Art Bld Gas pCO2 Correct 54 mmHg (35-46); iSTAT Art Bld Gas pH Corrected 7.317 (7.35-7.45); iSTAT Arterial Blood Gas HCO3 28 meg/L (19-24); iSTAT Arterial Blood Gas pCO2 56 mmHg (35-46); iSTAT Arterial Blood Gas pH 7.31 (7.35-7.45); iSTAT Arterial Blood Gas pO2 81 mmHg (80-95); iSTAT Arterial Blood Gas pO2 C 78; iSTAT Carbon Dioxide 30 mmol/L (24-31); iSTAT Hematocrit 25 % (42-52); iSTAT Hemoglobin 8.5 g/dl (14.0-18.0); iSTAT Potassium 4.1 mmol/L (3.3-5.0); iSTAT Site Art Line; iSTAT Sodium 143 mmol/L (135-144)
--- NOTE | 2023-01-14 10:38 | XRay Report ---
XR chest 1V portable HISTORY: COPD. Respiratory distress. COMPARISON: Chest 01/12/2023. FINDINGS: Endotracheal tube is been removed. Right jugular central venous catheter terminates at the SVC. Small bilateral pleural effusions and patchy bibasilar densities persist. Chronic consolidation/ scarring within the right lung apex/right upper lobe remains unchanged. There is a questionable tiny right apical pneumothorax. IMPRESSION: 1. Questionable tiny right apical pneumothorax. Follow-up recommended to ensure stability/resolution. 2. Small bilateral pleural effusions and patchy bibasilar densities persist. 3. This report was called/faxed to the referring physician following dictation. ACT 112: Negative or not required by law. Electronically signed by: Temo Horne M.D. 01/14/2023 10:37 AM
[2023-01-14] MEDS: HEPARIN SOD 5,000 UNIT/0.5 ML VIAL SQ SCH ×2 (10:46→20:08)
[2023-01-14] MEDS: CEFEPIME 1,000 MG in SYRINGE 0 ML IV SCH (10:48)
[2023-01-14] MEDS: AMPICILLIN/SULBACTAM SOD 3,000 MG in 0.9 % SODIUM CHLORIDE 100 ML IV SCH ×2 (11:28→22:25)
[2023-01-14] MEDS: PANTOprazole 40 MG in SYRINGE 0 ML IV SCH (11:31)
[2023-01-14] MEDS ORDERED: OLANZapine 10 MG/2.1 ML SDV IM STA (11:52)
[2023-01-14] MEDS ORDERED: OLANZapine ZYDIS 5 MG ORALLY DIS. TAB PO ONE (12:00)
[2023-01-14] MEDS: BRINZOLAMIDE (AZOPT) OPS 10 ML BTL OPL SCH (20:07)
--- NOTE | 2023-01-14 22:30 | Hospitalist Progress Note ---
Date of Service January 14, 2023 Assessment & Plan (1) Respiratory failure: Plan: 82yo male with history of oxygen dependent COPD, recent hospitalization at [facility] for acute hypoxic respiratory failure secondary to PNA and COPD requiring intubation and MICU care. Patient presents this evening with acute hypoxic respiratory failure, failed BiPAP in the ER therefore intubated for acute hypoxic respiratory failure and admitted to the MICU. Presently with adequate oxygenation of 80% FiO2. CT of the chest with bibasilar infiltrates. Suspect aspiration event. No overt wheezing appreciated on exam at this time Neuro: confused No focal deficits noted on exam Cardiovascular: Patient hypotensive after intubation requiring Levophed -Admit to MICU -levophed is off, goal MAP of 65 -Continue IVF - per history, patient has had very poor oral intake of late. Per MICU and ER providers - IJ and Femoral veins were highly compressible suggesting intravascular depletion/dehydration -patient extubated later on 01/13. Pulmonary- possible aspiration event leading to patient's acute hypoxic event -Continue mechanical ventilation -DuoNebs -Albuterol -Solumedrol 60mg IV TID -Antibiotic coverage - Cefepime and Azithromycin -extubated in PM of 01/13 GI - No acute issues -Protonix 40mg IV daily for GI prophylaxis while ventilated - No acute issues. -Lou in place -Monitor BUN and Cr Heme - Normochromic/normocytic anemia with Hgb=8.5, Hct=27.6. No obvious bleeding -Monitor ID - possible aspiration PNA -Follow cultures -Cefepime + Azithromycin Endocrine - no active issues. Given Hydrocortisone 100mg IV x 1 dose Conntinue current medications. (2) Hypotension: (3) COPD (chronic obstructive pulmonary disease): Admission and Anticipated Discharge Date Admission Date: January 11, 2023 Subjective Patient is very confused. Extubated Review of Systems Review of Systems: Unobtainable due to cognitive status Physical Exam Physical Exam: General: frail, cachectic male, confused Skin: warm, dry, intact, no rashes or lesions HEENT: NC/AT, PERRL, anicteric sclera, conjunctiva without injection, external ear normal to inspection and nontender, nares patent, moist mucus membranes, dentition intact, no oropharyngeal lesions, neck supple, trachea midline, no LAD, no thyromegaly, no JVD Heart: +S1/S2, regular, tachycardic, no m/r/g Lungs: equal air entry bilaterally, no rales/rhonchi/wheezes Abd: +BS, soft, ND, no masses/organomegaly/ascites Ext: warm, 2+ pulses in UE/LE bilaterally, no clubbing/cyanosis or edema Neuro: confused. Results & Data Results & Data Vital Signs (Past 12 Hours) Vital Signs Temp Pulse Resp BP Pulse Ox O2 Del Method O2 Flow Rate 01/14/23 22:00 36.6 C 102 H 27 H 100 01/14/23 22:00 146/77 H 01/14/23 21:30 36.7 C 95 H 26 H 100 01/14/23 21:00 36.9 C 104 H 40 H 01/14/23 21:00 157/75 H 01/14/23 20:00 36.9 C 100 H 26 H 98 01/14/23 20:00 152/74 H 01/14/23 20:14 Nasal Cannula 3 01/14/23 19:31 163/80 H 01/14/23 19:00 37.0 C 105 H 33 H 95 01/14/23 19:00 156/73 H 01/14/23 18:00 37.0 C 103 H 14 134/76 96 Oxymask 4 01/14/23 17:00 37.1 C 110 H 22 145/73 H 96 Nasal Cannula 3 01/14/23 16:01 37.0 C 110 H 26 H 158/79 H 95 Oxymask 3 01/14/23 16:00 109 H 01/14/23 15:00 36.7 C 103 H 28 H 148/75 H 92 Nasal Cannula 2 01/14/23 14:00 36.6 C 101 H 24 141/79 H 99 Nasal Cannula 4 01/14/23 13:00 36.3 C L 107 H 18 141/79 H 100 Nasal Cannula 5 01/14/23 11:50 36.7 C 106 H 30 H 159/74 H 93 Oxymask 4 01/14/23 10:39 36.2 C L 97 H 32 H 140/75 95 Oxymask 4 PG Care Time/CCT Total # of Minutes Spent Total Time Spent with Patient: Total time spent is greater than 50% in coordination of care (as documented) at patient's floor/unit and/or counseling patient: Coding Level of Care Code 21639 SUB INP/OBS CARE MIN Diagnoses Respiratory failure J96.01; J96.02 Chronicity: acute Respiratory failure complication: hypoxia and hypercapnia Hypotension I95.9 Hypotension type: unspecified hypotension type COPD (chronic obstructive pulmonary disease) J44.9 (1) Respiratory failure Chronicity: acute Respiratory failure complication: hypoxia and hypercapnia Qualified Code(s): J96.01 - Acute respiratory failure with hypoxia; J96.02 - Acute respiratory failure with hypercapnia (2) Hypotension Hypotension type: unspecified hypotension type Qualified Code(s): I95.9 - Hypotension, unspecified
[2023-01-15] MEDS: INSULIN ASPART PER UNIT CHARGE SC SCH (05:26)
[2023-01-15] MEDS ORDERED: D5W AND 1/2NSS 1,000 ML IV SCH (05:30)
[2023-01-15 05:33] LABS: Hematocrit (blood only) 29.7 % (42.0-52.0); Mean Corpuscular Hemoglobin 29.5 pg (25.0-34.0); Mean Corpuscular Hgb Conc 30.3 g/dL (32.0-36.0); Mean Corpuscular Volume 97.4 fL (80.0-100.0); Mean Platelet Volume 10.3 fL (9.4-12.4); Nucleated RBC # (auto) 0.09 K/uL (0-0.12); Nucleated RBC % (auto) 0.2 %; Platelet Count 241 K/uL (130-400); RDW Standard Deviation 53.3 fL (36.4-46.3); Red Blood Count 3.05 M/uL (4.70-6.10); White Blood Count 36.61 K/ul (4.8-10.8)
[2023-01-15 05:41] LABS: Calcium 7.9 mg/dl (8.6-10.3); Magnesium 2.8 mg/dl (1.7-2.4); Potassium 4.5 mmol/L (3.5-5.1)
[2023-01-15 05:46] LABS: BUN Creatinine Ratio 28.7 (10-20); Creatinine Clr Calc Pharmacy 19.3 ml/min; Est GFR (African American) 44.1 ml/min; Est GFR (Non-African American) 38.1 ml/min; Phosphorus 4.3 mg/dl (2.5-4.9)
[2023-01-15 05:56] LABS: Basophils % (auto) 0.3 %; Immature Granulocytes # (auto) 2.13 K/uL (0.01-0.20); Immature Granulocytes % (auto) 5.8 %; Lymphocytes # (auto) 0.67 K/uL (1.2-3.4); Lymphocytes % (auto) 1.8 %; Monocytes # (auto) 1.43 K/uL (0.11-0.59); Monocytes % (auto) 3.9 %; Neutrophils # (auto) 32.28 K/uL (1.40-6.50); Neutrophils % (auto) 88.2 %; RBC Morphology Unremarkable
[2023-01-15] MEDS ORDERED: oxyCODONE HCL SOLN 5 MG/5 ML UDC PO PRN (06:00)
[2023-01-15] MEDS ORDERED: oxyCODONE HCL SOLN 5 MG/5 ML UDC ONE (06:07)
[2023-01-15] MEDS ORDERED: ONDANSETRON 4 MG OD TAB SL PRN ×2 (06:14→07:55)
[2023-01-15] MEDS ORDERED: LORazepam 0.5 MG TAB PO PRN ×2 (06:14→07:55)
[2023-01-15] MEDS ORDERED: ONDANSETRON INJ 2 MG/ML 2 ML VIAL IV PRN ×2 (06:14→07:55)
[2023-01-15] MEDS ORDERED: GLYCOPYRROLATE 0.2 MG/ML VIAL IV PRN (06:14)
[2023-01-15] MEDS ORDERED: haloperidoL 1 MG TAB PO PRN (06:14)
--- NOTE | 2023-01-15 06:18 | Communication Note ---
Date of Service: January 15, 2023 Patient is now delirious and unable to make decisions for himself. Patient's family did present to the bedside and I was notified that they wanted to speak with the provider. I presented to the bedside and spoke with the patient's daughter and POA. At this time she is ready to transition to comfort measures only and focus care on making the patient comfortable knowing that he will likely pass away. Patient's daughter states that she is tired of seeing her father and pain. At this time patient does not have IV access, and family did not want to establish additional IV access. Comfort measure orders have been placed and will discontinue life-prolonging therapy. Coding Level of Care Code None
[2023-01-15] MEDS ORDERED: HALOPERIDOL LACTATE 5 MG/ML 1 ML VIAL IM STA (07:17)
[2023-01-15] MEDS ORDERED: MoRPHine SULFATE 10 MG/0.5 ML UDP PO PRN (07:17)
[2023-01-15] MEDS ORDERED: HALOPERIDOL LACTATE 5 MG/ML 1 ML VIAL ONE (07:24)
[2023-01-15] MEDS ORDERED: MoRPHine SULFATE 10 MG/0.5 ML UDP ONE (07:25)
[2023-01-15] MEDS ORDERED: MoRPHine SULFATE 2 MG/ML CARP ONE (07:45)
[2023-01-15] MEDS ORDERED: MoRPHine SULFATE 2 MG/ML CARP IV STA (07:48)
[2023-01-15] MEDS ORDERED: MoRPHine SULFATE 2 MG/ML CARP IV PRN (07:55)
[2023-01-15] MEDS ORDERED: LORazepam 2 MG/1 ML VIAL IV PRN (07:55)
--- NOTE | 2023-01-15 07:57 | Procedure Note ---
Procedure Note Date of Service January 15, 2023 Note Procedure: Usp Indwelling Peripherally Inserted IV Catheter Placement Attending: Dr. Cooper APC: Lorenzo Atkins PA-C Indication: Need for IV Access, Poor Vascular Access Anesthesia: None Verbal consent was obtained from family from patient prior to performing the procedure. A time-out was completed verifying correct patient, procedure, site, positioning, and implant(s) or special equipment if applicable. Utilizing bedside ultrasound, vascularity of the RIGHT upper extremity was assessed. Vessel size was noted for appropriate catheter selection and skin was marked with gentle pressure. Patients RIGHT upper extremity was prepped and draped in the usual sterile fashion utilizing chlorhexidine. Ultrasound guidance was used to aid needle placement. A 20 g PowerGlide Pro Catheter was introduced into the basilic vein under direct ultrasound guidance. Guide wire was easily deployed without resistance. Catheter was threaded over the guide wire without resistance and the entire apparatus was removed intact. Good venous blood return was noted in the catheter. The IV catheter was easily flushed with sterile saline flush. Sterile clave was attached to the end of the catheter and good blood return was again noted. Tourniquet was released. StatLock device and sterile dressing were applied. The patient tolerated the procedure well. Blood Loss: Minimal Complications: None IV Information: Catheter Type - PowerGlide Pro Midline Catheter REFERENCE NUMBER - [id number] LOT NUMBER - [id number] Procedural Ultrasound Guidance: Procedure Date: 01/15/2023 Indication: Poor Vascular Access Attending: Dr. Cooper APC: Lorenzo Atkins PA-C Artery/Veins Identified: YES Access confirmed in Vein with ultrasound: YES Complications: NONE Patient tolerated procedure: WELL Coding CPT Codes Tubes, Drains, and Vasc Access - Tubes, Drains, and Vasc Access: [id number] Venipuncture, Age 5/>Req phys skill, (sep proc), Dx/Tx (not rtn) ([id number]) [facility] Procedure Codes (Charges) Tubes, Drains, and Vasc Access Procedure 1: Tubes, Drains, and Vasc Access: [id number] Venipuncture, Age 5/>Req phys skill, (sep proc), Dx/Tx (not rtn)
--- NOTE | 2023-01-15 08:56 | Hospitalist Progress Note ---
Date of Service January 15, 2023 Assessment & Plan (1) Respiratory failure: Plan: Severe Sepsis Septic shock requiring pressors 82yo male with history of oxygen dependent COPD, recent hospitalization at [facility] for acute hypoxic respiratory failure secondary to PNA and COPD requiring intubation and MICU care. Patient presents this evening with acute hypoxic respiratory failure, failed BiPAP in the ER therefore intubated for acute hypoxic respiratory failure and admitted to the MICU. Presently with adequate oxygenation of 80% FiO2. CT of the chest with bibasilar infiltrates. Suspect aspiration event. No overt wheezing appreciated on exam at this time Neuro: confused No focal deficits noted on exam Cardiovascular: Patient hypotensive after intubation requiring Levophed -Admit to MICU -levophed is off, goal MAP of 65 -Continue IVF - per history, patient has had very poor oral intake of late. Per MICU and ER providers - IJ and Femoral veins were highly compressible suggesting intravascular depletion/dehydration -patient extubated later on 01/13. Pulmonary- possible aspiration event leading to patient's acute hypoxic event -Continue mechanical ventilation -DuoNebs -Albuterol -Solumedrol 60mg IV TID -Antibiotic coverage - Cefepime and Azithromycin -extubated in PM of 01/13 GI - No acute issues -Protonix 40mg IV daily for GI prophylaxis while ventilated - No acute issues. -Lou in place -Monitor BUN and Cr Heme - Normochromic/normocytic anemia with Hgb=8.5, Hct=27.6. No obvious bleeding -Monitor ID - possible aspiration PNA -Follow cultures -Cefepime + Azithromycin Endocrine - no active issues. Given Hydrocortisone 100mg IV x 1 dose Conntinue current medications. (2) Hypotension: (3) COPD (chronic obstructive pulmonary disease): Admission and Anticipated Discharge Date Admission Date: January 11, 2023 Results & Data Results & Data Vital Signs (Past 12 Hours) Vital Signs Temp Pulse Resp BP Pulse Ox O2 Del Method O2 Flow Rate 01/15/23 06:00 36.2 C L 90 33 H 01/15/23 06:00 143/81 H 01/15/23 05:00 36.1 C L 85 37 H 98 01/15/23 05:00 149/100 H 01/15/23 04:00 36.1 C L 82 24 100 01/15/23 04:00 147/76 H 01/15/23 03:00 36.1 C L 90 39 H 100 01/15/23 03:00 155/96 H 01/15/23 02:00 36.3 C L 89 23 100 01/15/23 02:00 138/77 01/15/23 01:00 36.6 C 83 L 01/15/23 01:00 148/85 H 01/15/23 00:00 36.6 C 90 33 H 99 01/15/23 00:00 143/69 H 01/14/23 23:01 159/75 H 01/14/23 23:00 36.6 C 98 H 19 88 L 01/14/23 23:53 Nasal Cannula 4 01/14/23 22:00 36.6 C 102 H 27 H 100 01/14/23 22:00 146/77 H 01/14/23 21:30 36.7 C 95 H 26 H 100 01/14/23 21:00 36.9 C 104 H 40 H 01/14/23 21:00 157/75 H PG Care Time/CCT Total # of Minutes Spent Total Time Spent with Patient: Total time spent is greater than 50% in coordination of care (as documented) at patient's floor/unit and/or counseling patient: Coding Diagnoses Respiratory failure J96.01; J96.02 Chronicity: acute Respiratory failure complication: hypoxia and hypercapnia Hypotension I95.9 Hypotension type: unspecified hypotension type COPD (chronic obstructive pulmonary disease) J44.9 (1) Respiratory failure Chronicity: acute Respiratory failure complication: hypoxia and hypercapnia Qualified Code(s): J96.01 - Acute respiratory failure with hypoxia; J96.02 - Acute respiratory failure with hypercapnia (2) Hypotension Hypotension type: unspecified hypotension type Qualified Code(s): I95.9 - Hypotension, unspecified
[2023-01-15] MEDS ORDERED: FLUTICASONE/VILANTEROL 100/25MCG 14 PUFFS/INHALER INH SCH (09:00)
--- NOTE | 2023-01-15 09:03 | Communication Note ---
Date of Service: January 15, 2023 Patient transitioned to full comfort measures. Still intermittent episodes of delirium, patient self discontinued intravenous lines requiring placement of a ultrasound-guided catheter by IV team. He was treated with 1 amp of dextrose for blood glucose of 60. Again aligning with patient's goals as well as family goals for comfort we will not be continuing any laboratory draws. Patient is stable for downgrade out of the ICU with expectant management. Coding Level of Care Code None Time Spent (min) 30
[2023-01-15] MEDS: HEPARIN SOD 5,000 UNIT/0.5 ML VIAL SQ SCH (09:52)
[2023-01-15] MEDS: BRINZOLAMIDE (AZOPT) OPS 10 ML BTL OPL SCH (09:53)
--- NOTE | 2023-01-15 09:54 | Communication Note ---
Date of Service: January 15, 2023 Palliative Med Brief Note Consult received, chart reviewed: earlier this morning following further acute decompensation, patient's family moved him to [facility]. Orders are in place and a plan of care has been agreed upon with identified goals for comfort/end of life care. An acute Palliative Medicine consult at this junction does not appear to be urgently needed, therefore this consult is deferred and I remain available for assistance prn if desired with optimizing end of life symptom mgt. Disposition planning per primary team and care mgt. I have updated primary team. TS 32min Patient not seen NO charge submitted. Thank you for allowing us to participate in the ongoing care of this patient. Please don't hesitate to call or page with any additional concerns. Dr. Pavithra Maxwell DNP Director, Palliative Care
--- NOTE | 2023-01-15 18:11 | Death Pronouncement Note ---
Date of Service January 15, 2023 Pronouncement Note Admission Date January 11, 2023 Preliminary Cause of (1) Respiratory failure: Chronicity: acute Respiratory failure complication: hypoxia and hypercapnia Qualified Code(s): J96.01 - Acute respiratory failure with hypoxia; J96.02 - Acute respiratory failure with hypercapnia (2) Hypotension: Hypotension type: unspecified hypotension type Qualified Code(s): I95.9 - Hypotension, unspecified (3) COPD (chronic obstructive pulmonary disease): Additional Data Attending physician: Missael Dozier Coding Diagnoses Respiratory failure J96.01; J96.02 Chronicity: acute Respiratory failure complication: hypoxia and hypercapnia Hypotension I95.9 Hypotension type: unspecified hypotension type COPD (chronic obstructive pulmonary disease) J44.9
--- NOTE | 2023-01-15 18:11 | Discharge Summary ---
Date of Service January 15, 2023 Admission HPI Per Admitting Provider 82yo male presenting to [facility] ER with acute hypoxic respiratory failure. Patient intubated in the ER and started on vasopressors. History obtained through chart review, discussion with ER staff and discussion with family. 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 He was admitted to [facility] 12/03/22 - 12/11/22 after presenting with acute respiratory failure with saturations in the 70's requiring intubation and MICU admission. He was diagnosed with PNA, COPD exacerbation and sepsis. He was found to have a consolidation in right apex and small bilateral pleural effusions. He had a right common iliac occlusion/thrombus and was seen by Vascular Surgery - no intervention planned. He had a respiratory culture which revealed rare aspergillus. He was treated with Cefepime, Vancomycin and Solumedrol. He was ultimately extubated to his baseline NC and discharged to rehab at [facility] in [place] on 12/11/22. He reportedly did well at [facility] and was discharged home on 12/21/22. Daughter reports that since returning from [facility] patient has been eating and drinking very little. He coughs frequently with eating and is known to be high risk for aspiration. He is to eat a minced/moist diet and thickened liquids. This evening he was in his usual state of health with no new complaints. He laid down in the afternoon and took a 2 hour nap. His daughter checked on him and noted that he seemed to be having a hard time breathing. She checked his oxygen level while he was sleeping and it was found to be low at 63% while on his 2L NC. Daughter woke him up and increased his supplemental O2 to 2.5 L with some improvement in saturation to mid 70's. She continued to increase his oxygen until she got over 3L with saturation of approximately 83% - then called EMS. Upon arrival to the ER patient in acute hypoxic respiratory failure. He was placed on CPAP --> BiPAP with no improvement in saturation. He was ultimately intubated for acute hypoxic respiratory failure. Of note, he was administered IV Etomidate and Succinylcholine x 1 with no response - IV noted to be blown. The medications were then administered through a different IV site. After intubation patient became hypotensive and bradycardic. He was administered 1mg of epinephrine with improvement. Unsuccessful attempt to pass a right femoral TLC due to inability to pass the wire and highly collapsible vasculature. A left IO was obtained and a left foot PIV placed. MICU ALYSSA Cooper placed a right IJ TLC. Additional epinephrine 2mL was administered due to decreasing blood pressure. Patient also administered 50mEq HCO3 x 2, Cefepime and 2L NSS Patient was admitted to MICU Discharge Data Allergies Allergy/AdvReac Type Severity Reaction Status Date / Time No Known Drug Allergies Allergy Unknown Verified 01/12/23 02:10 Consultations 01/11/23 21:56 ED Decision to Admit Stat 01/11/23 23:36 Consult Cryptologist Routine Ordered Studies 01/11/23 21:54 CT Abd and Pelvis [CT abd pelvis wo con] Stat CT angio chest PE protocol Stat Hospital Course (1) Respiratory failure: 82yo male with history of oxygen dependent COPD, recent hospitalization at [facility] for acute hypoxic respiratory failure secondary to PNA and COPD requiring intubation and MICU care. Patient presents this evening with acute hypoxic respiratory failure, failed BiPAP in the ER therefore intubated for acute hypoxic respiratory failure and admitted to the MICU. Presently with adequate oxygenation of 80% FiO2. CT of the chest with bibasilar infiltrates. Suspect aspiration event. No overt wheezing appreciated on exam at this time Neuro: confused No focal deficits noted on exam Cardiovascular: Patient hypotensive after intubation requiring Levophed -Admit to MICU -levophed is off, goal MAP of 65 -Continue IVF - per history, patient has had very poor oral intake of late. Per MICU and ER providers - IJ and Femoral veins were highly compressible suggesting intravascular depletion/dehydration -patient extubated later on 01/13. Pulmonary- possible aspiration event leading to patient's acute hypoxic event -Continue mechanical ventilation -DuoNebs -Albuterol -Solumedrol 60mg IV TID -Antibiotic coverage - Cefepime and Azithromycin -extubated in PM of 01/13 GI - No acute issues -Protonix 40mg IV daily for GI prophylaxis while ventilated - No acute issues. -Lou in place -Monitor BUN and Cr Heme - Normochromic/normocytic anemia with Hgb=8.5, Hct=27.6. No obvious bleeding -Monitor ID - possible aspiration PNA -Follow cultures -Cefepime + Azithromycin Endocrine - no active issues. Given Hydrocortisone 100mg IV x 1 dose Conntinue current medications. (2) Hypotension: (3) COPD (chronic obstructive pulmonary disease): Discharge Plan Discharge Items Reason For Visit: HYPOTENSION Condition on Discharge: Critical Follow-up/Referrals: Marty Elaine DO [Primary Care Provider] - Medications and DC Order Prescriptions: No Action brinzolamide 1 % drops,suspension 1 drp ophthalmic (eye) BID albuterol sulfate 90 mcg/actuation HFA aerosol inhaler 2 inh INHALATION TID PRN (Reason: Shortness Of Breath) Alphagan P 0.1 % drops 1 drp ophthalmic (eye) BID fluticasone furoate-vilanterol [Breo Ellipta] 100-25 mcg/dose blister with device 1 INHALATION DAILY Admission Data Admit Date/Time: 01/11/23 22:17 Attending Provider: Missael Dozier Admit Provider: Melissa Weiss Primary Care Provider: Marty Elaine Other Providers: [facility] ; Melissa Weiss ; Chucky Light Coding Diagnoses Respiratory failure J96.01; J96.02 Chronicity: acute Respiratory failure complication: hypoxia and hypercapnia Hypotension I95.9 Hypotension type: unspecified hypotension type COPD (chronic obstructive pulmonary disease) J44.9
--- NOTE | 2023-01-15 18:12 | History & Physical Report ---
Date of Service January 15, 2023 Assessment & Plan Admission and Anticipated Discharge Date Admission Date: January 11, 2023 History of Present Illness Primary Care Provider: Marty Elaine DO Allergies Allergy/AdvReac Type Severity Reaction Status Date / Time No Known Drug Allergies Allergy Unknown Verified 01/12/23 02:10 Home Medications Medication Instructions Recorded Confirmed Type albuterol sulfate 90 mcg/actuation 2 inh inhalation TID PRN Shortness 01/12/23 01/12/23 History aerosol inhaler Of Breath brimonidine 0.1 % eye drops 1 drp ophthalmic (eye) BID 01/12/23 01/12/23 History (Alphagan P) brinzolamide 1 % eye 1 drp ophthalmic (eye) BID 01/12/23 01/12/23 History drops,suspension fluticasone furoate 100 1 inhalation DAILY 01/12/23 History mcg-vilanterol 25 mcg/dose inhalation powder (Breo Ellipta) Past Med/Surg History Medical History (Updated 01/12/23 @ 03:27 by GEENA Kendrick) COPD (chronic obstructive pulmonary disease) Glaucoma Surgical History (Updated 01/12/23 @ 02:14 by Melissa Weiss DO) No significant past surgical history Family History (Updated 01/12/23 @ 02:14 by Melissa Weiss DO) Other No significant family history Social History (Updated 01/12/23 @ 02:14 by Melissa Weiss DO) Smoking Status: Former smoker Tobacco Type: Smokeless Tobacco (Dip or Chew) Second Hand Exposure: No; Do You Dip or Chew Tobacco: Yes; Tobacco Cessation Education Requested by Patient: No Hx Alcohol Use: No Hx Substance Use: No Preferred Language: Serbian Communication Ability: Impaired Policy Officer Required: No Beliefs That Will Affect Care: None Current Living Situation: Family Other Information That Helps Us Care for You: No Feels Safe at Home: Yes Safety Concerns: Feels Safe At This Time Assistive Devices: Walker Results & Data Results & Data Vital Signs (Past 12 Hours) Vital Signs O2 Del Method O2 Flow Rate 01/15/23 11:14 Nasal Cannula 2 PG Care Time/CCT Total # of Minutes Spent Total Time Spent with Patient: Total time spent is greater than 50% in coordination of care (as documented) at patient's floor/unit and/or counseling patient: Coding Diagnoses
== END 2023-01-15 19:16 | disposition expired | DRG 871 ==
LOC: ED 20:00 → 1E 22:17 → SUATTDRO 22:17 → 1E 22:30 → 3E 01-15 10:45